=== PATIENT | female | born 1985 | race Caucasian/White ===

== ENCOUNTER 2024-08-05 14:20 | Inpatient (IN) | payer OTHER, SELFPAY ==
[2024-08-05 10:31] VITALS: BP 101/65
--- NOTE | 2024-08-05 11:12 | ED.GENMED ---
History of Present Illness
General
Chief Complaint: Skin Problem
Source: patient
Exam Limitations: none
Time Seen by Provider: 08/05/24 10:47
History of Present Illness
History of Present Illness:
See MDM
Past History
Past History
ED Past Medical History: Cancer (Breast 2019. Metastatic disease 2022)
ED Past Surgical History: , Gynecological and Other (Mastectomy with reconstruction)
Social History
Tobacco: Non-smoker
Alcohol: None
Drug: None
Personal:
Living: with family
Employment: Employed
Phy Exam
Physical Exam
Physical Exam:
See MDM
Course
Orders/Labs/Results
Orders:
Orders
08/05/24 11:11
HYDROmorphone [Dilaudid] 1 mg IV NOW STA
Ketorolac [Toradol] 30 mg IV NOW STA
Piperacillin/Tazo 3.375 Gram [Zosyn] 3.375 gram in 50 ml IV NOW
08/05/24 11:33
Complete Blood Count/With Diff Urgent
Comprehensive Metabolic Panel Urgent
Blood Culture Q30M
DANIS Source: Blood/Venous
Specimen Description:
Blood Culture Q30M
DANIS Source: Blood/Venous
Specimen Description:
08/05/24 12:13
Vancomycin [Vancocin] 1,750 mg 0.9% Sodium Chloride 500 ml [Nss] 500 ml IV NOW
08/05/24 12:37
HYDROmorphone [Dilaudid] 1 mg IV NOW STA
Abnormal Lab Results
08/05/24
11:33
WBC 3.9 L 10^3/uL
(4.8-10.8)
RBC 3.29 L 10^6/uL
(4.20-5.40)
Hgb 11.3 L g/dL
(12.0-16.0)
Hct 32.5 L %
(37.0-47.0)
MCH 34.3 H pg
(27.0-31.0)
Absolute Lymphs (auto) 0.6 L 10^3/uL
(1.2-3.4)
Lymphocytes % 14.8 L %
(20.5-51.1)
08/05/24 11:33
08/05/24 11:33
Vital Signs
Initial and Last Documented VS:
Initial Vital Signs
Temp Pulse Resp BP Pulse Ox
98.3 F 84 16 101/65 100
08/05/24 10:31 08/05/24 10:31 08/05/24 10:31 08/05/24 10:31 08/05/24 10:31
Last Documented Vital Signs
Temp Pulse Resp BP Pulse Ox
98.3 F 78 18 105/68 99
08/05/24 10:31 08/05/24 11:54 08/05/24 11:54 08/05/24 11:54 08/05/24 11:54
MDM/Problems Addressed
Differential Diagnosis Includes:
HPI and MDM Narrative:
39-year-old female presenting for evaluation of abscess to her right elbow with skin changes. Patient is immunocompromise stage IV breast cancer. She is currently on targeted cell therapy, per her . Patient and states this makes
her immunocompromised. She recently admitted for 'lung infection'. She is currently on Bactrim. They noted the swelling of her right elbow and states that outpatient x-ray was negative. She states that her doctor obtained a wound culture as well.
On exam, she does have small wound to her right elbow with surrounding cellulitic changes. Given she is already on Bactrim and immunocompromised and getting worse, will admit for IV antibiotics. Will start vancomycin and Zosyn
Physical exam
General: Well appearing and non-toxic
HEENT: protecting airway
Neck: appears supple
CV: No evidence of cyanosis
Resp: No accessory muscle use
Abd: Non-distended
Extremities: No deformities
Neuro: alert
Psych: Normal affect
Skin: Ruptured abscess to right elbow with surrounding cellulitis. Mild drainage noted. Range of motion of elbow seems to be intact
Problems Addressed including Acute and Chronic Conditions affecting care:
1. Right elbow infection
Acuity: acute
Prognosis: stable
Details: Given that she is already on outpatient antibiotics and immunocompromise, will start IV antibiotics and admit
Differential Diagnosis (but not limited to): Septic bursitis, cellulitis, abscess
Testing considered: Repeat x-ray
Drug therapy (if applicable): OTC meds, please see d/c instruction regarding Rx drugs
Amount and/or Complexity of Data Reviewed
Clinical info obtained from: Patient
External data reviewed: N/A
Labs I independently reviewed (but not limited to): White blood cell count 3.9
Radiology: N/A
Pulse Ox: not hypoxic
EKG independently reviewed: N/A
Online Journalist: N/A
Critical Care: N/A
Risk of Complication:
Social Determinants of health: Good social support
Discussed with other providers: Hospitalist
Escalation of Care includes Admit/Obs: given the be compromised and having cellulitis despite being on antibiotics ready, will admit
Occasional wrong word or 'sound a like' substitutions may have occurred due to the inherent limitations of voice recognition software. Read the chart carefully and recognize, using context, where substitutions have occurred.
*Critical Care Note
Total Time (30-74mins, 75-104mins- exclusive of procedures): Not Applicable
ED Attending Note
-
Portions of this chart may have been created with voice recognition software.� Occasional wrong word or��sound alike� substitutions may have occurred due to the inherent limitations of voice recognition software.
Discharge Plan
Departure
Patient Disposition: Admit
Date of Disposition: 08/05/24
Time of Disposition: 12:52
Admit to: Med/Surg
Presentation/result/management discussed w/ accepting MD/DO: Hospitalist
Discharge Problem:
Cellulitis
Prescriptions:
No Action
duloxetine 30 mg capsule,delayed release(DR/EC)
60 mg PO DAILY
anastrozole 1 mg Tablet
1 mg PO QPM
sennosides [senna] 8.6 mg Tablet
8.6 mg PO .SIX TIMES A DAY
meloxicam [Mobic] 15 mg Tablet
15 mg PO NOON
cyanocobalamin (vitamin B-12) 1,000 mcg Tablet
1,000 mcg PO QPM
calcium carbonate [Calcium 500] 500 mg calcium (1,250 mg) Tablet
500 mg PO QPM
ferrous sulfate 325 mg (65 mg iron) Tablet
325 mg PO NOON
cholecalciferol (vitamin D3) [Vitamin D3] 25 mcg (1,000 unit) Capsule
25 mcg PO QPM
pregabalin [Lyrica] 75 mg Capsule
75 mg PO TID
Kisqali 200 mg/day (200 mg x 1) Tablet
0 mg PO PER PKG DIR
Rx Instructions:
patient to take for 3 weeks on and then 1 week off
cyclobenzaprine [Flexeril] 10 mg Tablet
10 mg PO NOON
sulfamethoxazole-trimethoprim [Bactrim DS] 800-160 mg Tablet
1 tab PO BID
hydromorphone 4 mg Tablet
4 mg PO Q6H
Interventions
Interventions:
*General Assessment Last Done: 08/05/24 11:07
ED- Fall Risk Assessment Last Done: 08/05/24 11:07
ED-Skin Assessment Last Done: 08/05/24 11:07
Discharge Date and Time
Print Language: JAPANESE
[2024-08-05 11:18] VITALS: BMI 22.6
[2024-08-05] MEDS: DILAUDID 1 MG IV ×3 (11:34→19:26)
[2024-08-05] MEDS: TORADOL 30 MG IV (11:34)
[2024-08-05 11:54] VITALS: BP 105/68
[2024-08-05 11:57] LABS: % Basophils 0.8 % (0-2); % Immature Granulocytes 0.3 % (0-0.5); % Lymphocytes 14.8 % (20.5-51.1); % Monocytes 8.1 % (1.7-9.3); Absolute Eosinophils 0.1 10^3/uL (0-0.7); Absolute Lymphocytes 0.6 10^3/uL (1.2-3.4); Absolute Monocytes 0.3 10^3/uL (0.1-0.6); Absolute Neutrophils 2.9 10^3/uL (1.4-6.5); Hematocrit 32.5 % (37.0-47.0); Hemoglobin 11.3 g/dL (12.0-16.0); Mean Corp Hgb Conc. 34.8 g/dL (33.0-37.0); Mean Corpuscular Hgb 34.3 pg (27.0-31.0); Mean Corpuscular Volume 98.8 fL (81.0-99.0); Mean Platelet Volume 9.3 fL (7.4-10.4); Nucleated Red Blood Cells % 0 %; Platelet Count 204 10^3/uL (130-400); Red Blood Cell Count 3.29 10^6/uL (4.20-5.40); Red Cell Dist. Width 11.9 % (11.5-14.5); White Blood Cell Count 3.9 10^3/uL (4.8-10.8)
[2024-08-05 12:09] LABS: ALT (SGPT) 12 U/L (0-35); AST (SGOT) 23 U/L (14-36); Albumin 4.1 g/dl (3.5-5.0); Alkaline Phosphatase 100 U/L (38-126); Blood Urea Nitrogen 13 mg/dl (7-17); Calcium 8.8 mg/dl (8.4-10.2); Carbon Dioxide 29 mmol/L (22-30); Chloride 99 mmol/L (98-107); Estimated Creatinine Clearance 104 ml/min; Glucose 88 mg/dl (70-99); Potassium 4.8 mmol/L (3.5-5.1); Sodium 138 mmol/L (135-145); Total Bilirubin 0.5 mg/dl (0.2-1.3); Total Protein 6.3 g/dl (6.3-8.2); eGFR > 60.00
[2024-08-05] MEDS: ZOSYN 50 IV ×3 (12:43→23:47)
--- NOTE | 2024-08-05 12:45 | HPS.HSE ---
Family Physician
-
Family Physician:
Chief Complaint
-
right elbow abscess
History of Present Illness
39 year old with hxt of metastatic stage 4 breast cancer presented to us with right elbow swelling and pain since last Monday. Throughout the week it progressively got worse. Patient was started on Bactrim on . The abscess ruptured on
Monday. Still with redness, swelling and painful. A week ago patient was in Zithromax for pneumonia. Patient denied any headache, dizziness, syncopal episode. Patient denied any fever, chills, chest pain, short of breath. Patient denied any
abdominal pain. Patient stated decreased appetite, nausea, vomiting. Patient denied any dysuria materia.
Patient received Vanco and Zosyn in ER. Admitting for further management
Medical History
Past Medical History
Past Medical History: Reports Other
Additional Past Medical History:
Breast cancer
Past Surgical History: Reports None and Other
Additional Past Surgical History:
Hysterectomy, bilateral mastectomy, hip replacement
Social History
Tobacco: Former Smoker
Alcohol: Occasional
Drug: None
Personal:
Living: With Family
Family History
Family History: Not pertinent
Allergies / Home Medications
Allergies reflects when Allergies were last updated in [facility].
Home Medications with original date entered in [facility]
Allergy/Medication List:
Allergies
Allergy/AdvReac Type Severity Reaction Status Date / Time
ondansetron [From Zofran] Allergy Nausea / Verified 08/05/24 10:31
Vomiting
oxycodone [From Percocet] Allergy Nausea / Verified 08/05/24 10:31
Vomiting
Home Medications
anastrozole 1 mg tablet 1 mg PO QPM breast cancer 06/26/23
calcium carbonate 500 mg PO QPM Supplement 06/26/23
cholecalciferol (vitamin D3) 25 mcg (1,000 unit) capsule (Vitamin D3) 25 mcg PO QPM Supplement 06/26/23
cyanocobalamin (vitamin B-12) 1,000 mcg tablet 1,000 mcg PO QPM Supplement 06/26/23
duloxetine 30 mg capsule,delayed release 60 mg PO DAILY depression/anxiety 06/26/23
ferrous sulfate 325 mg (65 mg iron) tablet 325 mg PO NOON Supplement 06/26/23
meloxicam 15 mg tablet 15 mg PO NOON pain 06/26/23
pregabalin 75 mg capsule (Lyrica) 75 mg PO TID pain 06/26/23
ribociclib 200 mg/day (200 mg x 1) tablet (Kisqali) 0 mg PO PER PKG DIR breast cancer 06/26/23
sennosides 8.6 mg tablet (senna) 8.6 mg PO .SIX TIMES A DAY Constipation 06/26/23
cyclobenzaprine 10 mg tablet 10 mg PO NOON muscle spasm/pain 08/05/24
hydromorphone 4 mg tablet 4 mg PO Q6H pain 08/05/24
sulfamethoxazole 800 mg-trimethoprim 160 mg tablet (Bactrim DS) 1 tab PO BID infection 08/05/24
Review of Systems
-
Constitutional: Reports No Symptoms
EENT: Reports No Symptoms
Respiratory: Reports No Symptoms
Cardiac: Reports No Symptoms
Abdomen/GI: Reports No Symptoms
: Reports No Symptoms
Musculoskeletal: Reports No Symptoms
Skin: Reports Other (Right elbow swelling, redness and abscess)
Neurological: Reports No Symptoms
Endocrine: Reports No Symptoms
Hematologic/Lymphatic: Reports No Symptoms
Psych: Reports No Symptoms
Physical Exam
Vital Signs
Vital Signs
Temp Pulse Resp BP Pulse Ox
98.3 F 78 18 105/68 99
08/05/24 10:31 08/05/24 11:54 08/05/24 11:54 08/05/24 11:54 08/05/24 11:54
Physical Exam
General: Well Developed, Well Nourished and No Apparent Distress
HEENT: NormoCephalic, Moist mucous membranes and Atraumatic
Respiratory: Clear
Cardiac: S1/S2 and Regular Rhythm; No Murmur or Rub
GI: Soft, Non Tender, Non Distended and Normal Bowel Sounds; No Organomegaly
Rectal: Deferred by Provider
Musculoskeletal: No Clubbing, No Cyanosis and No Edema
Skin: Rash and Other (Right elbow wrapped in joanna)
Neuro: AO x 3 and Nonfocal/grossly intact
Psych: Calm
Laboratory Results
-
08/05/24 11:33
08/05/24 11:33
Laboratory Results
Total Bilirubin 0.5 mg/dl (0.2-1.3) 08/05/24 11:33
AST 23 U/L (14-36) 08/05/24 11:33
ALT 12 U/L (0-35) 08/05/24 11:33
Alkaline Phosphatase 100 U/L (38-126) 08/05/24 11:33
Data Reviewed
-
Lab Data: Labs Reviewed by me
Impression/Plan
-
# Abscess/cellulitis on right elbow
-Vanco and Zosyn continued
-Tylenol as needed for fever or pain
-WBCs 3.9
-Blood culture sent from ER
-obtain MRI
-outpatient X ray with soft tissue swelling possible occult fracture.
-wound care
# Stage IV breast metastatic cancer
-On targeted therapy
- follows oncologist at [facility]
-Dilaudid as needed for pain
-Will continue Lyrica
# Depression/anxiety
-Duloxetine continued
# Muscle spasm
-Flexeril continued
# Iron deficiency anemia
-Ferrous sulfate continued
# DVT prophylaxis
-Lovenox subcu
# CODE STATUS
-Full code
[2024-08-05] MEDS: VANCOCIN 535 MG IV (13:09)
--- NOTE | 2024-08-05 13:11 | W.PN.UPDATE ---
Update Note
Progress Note Update
This is an addendum to the H&P written by Evi Washington on 08/05/2024. Patient seen and examined independently with TAPE LIBRARIAN.
39-year-old female past medical history of stage IV breast cancer 2019 status post mastectomy with reconstruction on hormonal/immunotherapy follows at [facility] with metastases to left hip status post left hip replacement presenting with right elbow open
wound with purulent drainage surrounding cellulitis over the past week. No injuries.
Outpatient x-ray of the elbow shows soft tissue swelling, cannot rule out occult fracture.
She was treated for pneumonia with Z-Danyel 1 week ago. She has recovered from this.
Check blood cultures. Vancomycin/Zosyn. Wound care consulted. Check MRI of right elbow to evaluate for pathologic fracture/osteomyelitis. Continue to hold Kisqali.
[2024-08-05 16:15] VITALS: BP 103/67; BMI 20.9
--- NOTE | 2024-08-05 17:08 | PHA.VAN.IN ---
Assessment
- Assessment
Renal Function: Appears similar to baseline
Concomitant Antimicrobials: ZOSYN
- Previous Dosing Experience
Previous Regimen: NONE
AUC Dosing Plan
- Dosing Variables
Dosing Weight (kg): 65.3
Dosing CrCl (ml/min): 100
Vd coefficient (L/kg): 0.7
- Empiric Dosing
Initial / Loading Dose: 1750MG
Maintenance Regimen: 1GM IV Q12H
Estimated AUC (mcg*h/mL): 523
Estimated Peak (mcg*h/mL): 33.7
Estimated Trough (mcg/ml): 12.9
Estimated Half Life (H): 7.9
Pharmacokinetics Vancomycin I
- -
Patient Age: 39
Patient Sex: Female
Vancomycin Day #: 1
Indication: Skin And Soft Tissue ([R] ELBOW CELLULITIS)
Requesting Provider: LUIGI
Height / Weight:
Height 5 ft 7 in
Actual Weight 65.3 kg
Pertinent Past Medical History: STAGE 4 METASTATIC BREAST CA; OUTPT TX WITH BACTRIM
- Vital Signs / Lab Results
Temp Pulse Resp BP Pulse Ox
98.3 F 78 18 105/68 99
08/05/24 10:31 08/05/24 11:54 08/05/24 11:54 08/05/24 11:54 08/05/24 11:54
Lab Results - Hematology
08/05/24
11:33
WBC 3.9 L
Lab Results - Chemistry
08/05/24
11:33
BUN 13
Creatinine 0.7
Estimated Creat Clear 104
Albumin 4.1
[2024-08-05] MEDS: ARIMIDEX 1 MG PO (18:10)
[2024-08-05] MEDS: LOVENOX 40 MG SC (18:11)
[2024-08-05] MEDS: DILAUDID 4 MG PO ×2 (18:18→23:47)
[2024-08-05] MEDS: LYRICA 75 MG PO (20:27)
[2024-08-05 23:33] VITALS: BP 110/64
[2024-08-06] MEDS: DILAUDID 1 MG IV ×4 (01:53→19:41)
[2024-08-06] MEDS: ZOSYN 50 IV ×2 (05:01→12:34)
[2024-08-06] MEDS: DILAUDID 4 MG PO ×4 (05:56→23:52)
[2024-08-06] MEDS: VANCOCIN 200 IV ×2 (05:56→17:37)
[2024-08-06] MEDS: CYMBALTA DELAYED RELEASE 60 MG PO (05:56)
[2024-08-06 06:00] VITALS: BMI 20.9
[2024-08-06] MEDS: LYRICA 75 MG PO ×3 (06:05→19:41)
[2024-08-06 06:37] LABS: Hematocrit 33.5 % (37.0-47.0); Hemoglobin 10.7 g/dL (12.0-16.0); Mean Corp Hgb Conc. 31.9 g/dL (33.0-37.0); Mean Corpuscular Hgb 32.4 pg (27.0-31.0); Mean Corpuscular Volume 101.5 fL (81.0-99.0); Mean Platelet Volume 9.5 fL (7.4-10.4); Platelet Count 191 10^3/uL (130-400); Red Cell Dist. Width 11.9 % (11.5-14.5); White Blood Cell Count 2.7 10^3/uL (4.8-10.8)
[2024-08-06 07:18] LABS: Blood Urea Nitrogen 10 mg/dl (7-17); Calcium 8.2 mg/dl (8.4-10.2); Carbon Dioxide 22 mmol/L (22-30); Chloride 106 mmol/L (98-107); Estimated Creatinine Clearance 119 ml/min; Glucose 84 mg/dl (70-99); Potassium 4.9 mmol/L (3.5-5.1); Sodium 139 mmol/L (135-145); eGFR > 60.00
[2024-08-06 07:30] VITALS: BP 102/63
--- NOTE | 2024-08-06 07:58 | PHA.VAN.FU ---
Vancomycin Assessment / Plan
- Assessment
Renal Function: Stable
In the past 24 hrs, patient has been: Afebrile
Concomitant Antimicrobials: piperacillin/tazobactam
- Dosing Plan
Continue: Vanc 1000mg Q12H
- Monitoring Plan
No level(s) ordered at this time: consider levels in next few days
- Follow Up
Pharmacy will continue to follow.
Vancomycin Follow UP
- -
Patient Age: 39
Patient Sex: Female
Vancomycin Day #: 2
Indication: Skin And Soft Tissue
Requesting Provider: Carisa Washington
Pertinent Antimicrobial Allergies:
no pertinent antibiotic allergies
Height / Weight:
Height 5 ft 7 in
Actual Weight 60.328 kg
Pertinent Past Medical History: Stage IV breast metastatic cancer
- Vital Signs / Lab Results
Temp Pulse Resp BP Pulse Ox
97.9 F 74 20 110/64 98
08/05/24 23:33 08/05/24 23:33 08/05/24 23:33 08/05/24 23:33 08/05/24 23:33
Lab Results - Hematology
08/05/24 08/06/24
:33 06:20
WBC 3.9 L 2.7 L
Lab Results - Chemistry
08/05/24 08/06/24
: 06:20
BUN 13 10
Creatinine 0.7 0.6
Estimated Creat Clear 104 119
Albumin 4.1
--- NOTE | 2024-08-06 08:25 | W.PN.HOSP.TC ---
Today's Communication/Plan
-
Continue Vancomycin
Appreciate ID, ortho, oncology
Follow cultures
Assessment / Plan
Assessment / Plan
Physical Exam
General: Well Developed, Well Nourished and No Apparent Distress
HEENT: Normocephalic, Moist mucous membranes and Atraumatic
Respiratory: Clear to Auscultation Bilaterally
Cardiac: S1/S2 and Regular Rhythm
GI: Soft, Non Tender, Non Distended and Normal Bowel Sounds
Musculoskeletal: No Cyanosis and No Edema
Skin: Right olecranon with induration, wound/ulceration with patel-brown slough, very tender, no drainage, some fluctuance, and surrounding erythema present
Neuro: AAO x 3 and Nonfocal/grossly intact
Psych: Calm
Assessment/Plan
39-year-old female past medical history of stage IV breast cancer 2019 status post mastectomy with reconstruction on hormonal/immunotherapy follows at [facility] with metastases to left hip status post left hip replacement presenting with right elbow open
wound with purulent drainage surrounding cellulitis over the past week. No injuries.
Outpatient x-ray of the elbow shows soft tissue swelling, cannot rule out occult fracture.
She was treated for pneumonia with Z-Danyel 1 week ago. She has recovered from this.
# Presentation with right elbow swelling, redness, skin ulceration, pus (lump recently burst on 08/04/24 with pus and blood)
# Abscess/cellulitis on right elbow
-Patient was taking outpatient Bactrim, and once her right elbow lump burst with pus and blood coming out, patient's outpatient provider asked patient to go to the ER
-Vancomycin continued. Zosyn stopped as per Infectious Disease physician -- appreciate Infectious Disease assistance
-Blood culture sent from ER
-MRI showed a 1.7 x 2.4 cm peripherally enhancing collection in the superficial soft tissue without joint involvement
-Wound care consultation
-Orthopedics consulted, appreciate their assistance: on 08/06/24, right elbow was meticulously cleaned then aspirated fluid yielding scant serous fluid; aerobic and anaerobic cultures were sent.
# Stage IV breast metastatic cancer
-On targeted therapy
- follows oncologist at [facility]
-Dilaudid as needed for pain
-Will continue Lyrica
-Per patient and her , patient's Damari has been on hold for the past ~2 weeks given her recent pneumonia
-Consulted oncology, appreciate evaluation and recommendations
# Depression/anxiety
-Duloxetine continued
# Muscle spasm
-Flexeril continued
# Iron deficiency anemia
-Ferrous sulfate continued
# DVT prophylaxis
-Lovenox subcu
# CODE STATUS
-Full code
Total time spent today on reviewing patient's chart, seeing and examining the patient, speaking with patient and her , reviewing orders, placing specialist consultations, and documentation, was 75 minutes.
Anticipated Discharge: > 48 hours
Subjective/Interval History
-
Date of Service: August 06, 2024
Patient was seen and examined. She reported improvement of her right elbow symptoms.
Objective Data
-
Labs:
Laboratory Results
08/06/24
06:20
WBC 2.7 L
Hgb 10.7 L
Hct 33.5 L
Plt Count 191
Sodium 139
Potassium 4.9
Chloride 106
Carbon Dioxide 22
BUN 10
Creatinine 0.6
Glucose 84
Calcium 8.2 L
Vital Signs:
Vital Signs
Temp Pulse Resp BP Pulse Ox
98.0 F 72 14 102/63 96
08/06/24 07:30 08/06/24 07:30 08/06/24 07:30 08/06/24 07:30 08/06/24 07:30
I&O
08/05/24 08/06/24 08/07/24
06:59 06:59 06:59
Intake Total 830 / 830
Balance 830 / 830
[2024-08-06] MEDS: FEOSOL 325 MG PO (12:34)
[2024-08-06] MEDS: FLEXERIL 10 MG PO (12:34)
[2024-08-06] MEDS: MOBIC 15 MG PO (12:34)
[2024-08-06] MEDS: SENOKOT 17.2 MG PO ×2 (12:41→19:41)
--- NOTE | 2024-08-06 13:00 | CON.ID ---
Consultation
-
Date/Time Consultation Requested: 08/06/2024 1154
Date/Time Consultation Performed: 08/06/2024 1300
Requesting Provider: Dr. Jacques Darnell
Performing Provider: Dr. Ana Rosa Carballo
Reason for Consultation: Bursitis
Chief Complaint / Past History
Chief Complaint
Right elbow wound drainage
History of Present Illness
39-year-old female with metastatic breast cancer currently on immunotherapy who noted right elbow redness and soreness last Monday, July 30. Right elbow became very painful with worsening swelling, redness, and a lump. Her oncologist ordered
elbow x-ray which shows soft tissue swelling. She was prescribed Bactrim on August 01. Pain persisted. On Monday, the lump opened draining copious pus and blood. She was instructed to go to the ER and therefore she came to [facility]
yesterday. She was started on vancomycin and Zosyn. MRI of the elbow this morning shows a 1.7 x 2.4 cm peripherally enhancing collection in the superficial soft tissue without joint involvement. Patient reports the surrounding erythema has
improved. However she continues to have significant elbow pain over the wound. No fevers or chills at home. She denies any trauma or injury to the elbow.
Past History
Additional Past Medical History:
Stage IV breast cancer status post bilateral mastectomy, chemotherapy, currently on immunotherapy and hormone therapy
Right upper extremity lymphedema
Hysterectomy
Left hip pathological fracture status post replacement
Allergy History:
ondansetron [From Zofran] Allergy (Verified 08/05/24 10:31)
Nausea / Vomiting
oxycodone [From Percocet] Allergy (Verified 08/05/24 10:31)
Nausea / Vomiting
Medications Reviewed: Yes
Current Antibiotics:
Vancomycin
Zosyn
Social History
Tobacco: Former Smoker
Alcohol: None
Drug: None
Personal:
Living: With Family
Family History
Family History: Not Pertinent
Review of Systems
Review of Systems
General: Change in Appetite; Negative Fever or Chills
HEENT: Negative Headache or Pharyngitis
Cardiovascular: Negative Chest Pain or Edema
Respiratory: Negative Dyspnea or Cough
Gasteroenterology: Negative Nausea, Vomiting or Diarrhea
Endocrine: Weakness
Musculoskeletal: Joint Pain and Joint Swelling
Neurological: Negative Dizziness
All systems: All other systems were reviewed and were negative
Vital Signs
Temp Pulse Resp BP Pulse Ox
98.0 F 72 14 102/63 96
08/06/24 07:30 08/06/24 07:30 08/06/24 07:30 08/06/24 07:30 08/06/24 07:30
Physical Exam
Physical Exam
Constitutional: No Acute Distress
Eyes: No Conjunctival Hemorrhage and Sclera Anicteric
Cardiovascular: Regular Rate and S1/S2
Pulmonary: Clear
Gastrointestinal: Soft
Genito-Urinary: Negative CVA Tenderness
Extremities: Negative Edema
Wound: Other (right olecranon at tip with induration, wound with patel-brown slough, very tender, no drainage at this time, some fluctuance, + surrounding erythema)
Neurological: AO x 3
Lab / Diagnostic Study Results
08/06/24 06:20
08/06/24 06:20
Abs Immat Gran (auto) 0.0 10^3/uL (0-0.05) 08/05/24 11:33
Absolute Neuts (auto) 2.9 10^3/uL (1.4-6.5) 08/05/24 11:33
Absolute Lymphs (auto) 0.6 10^3/uL (1.2-3.4) L 08/05/24 11:33
Absolute Monos (auto) 0.3 10^3/uL (0.1-0.6) 08/05/24 11:33
Absolute Basos (auto) 0.0 10^3/uL (0-0.2) 08/05/24 11:33
Immature Gran % 0.3 % (0-0.5) 08/05/24 11:33
Neutrophils % 74.0 % (42.2-75.2) 08/05/24 11:33
Lymphocytes % 14.8 % (20.5-51.1) L 08/05/24 11:33
Monocytes % 8.1 % (1.7-9.3) 08/05/24 11:33
Eosinophils % 2.0 % (0-6) 08/05/24 11:33
Basophils % 0.8 % (0-2) 08/05/24 11:33
Microbiology Results
Micro:
08/05/24 11:33 Blood Culture - Preliminary
Blood/Venous No Growth in 24 hours- Final report to follow
08/05/24 11:33 Blood Culture - Preliminary
Blood/Venous No Growth in 24 hours- Final report to follow
08/05/24 19:11 MRSA Screen - Pending
Nose
08/06/24 MRI RUE: There is extensive T2 hyperintense signal and enhancement along the medial posterior soft tissues of the elbow extending along the proximal aspect of the forearm. There is a 1.7 x 0.7 x 2.4 cm peripherally enhancing collection,
likely abscess in the superficial soft tissues posterior to the olecranon. There is no discrete evidence of underlying osteomyelitis or intra-articular extension.
Assessment / Plan
# Right olecranon soft tissue abscess
- Abscess opened and drained 2 days ago.
-Currently not draining, unable swab for culture.
-MRI shows residual 2.4 cm abscess
-Apply warm compress to promote spontaneous drainage of remaining fluid
-Consult Ortho to consider bedside drainage, pls send cx.
- Elevate RUE
- DC Zosyn.
-Continue Vancomycin for now.
# Immunocompromised host stage IV brease CA on immunotherapy
Care Review
Plan reviewed with: Physician (Dr. Darnell.)
--- NOTE | 2024-08-06 14:43 | CM ---
CM following re: discharge planning.
Reviewed pt's chart, met with pt.
Pt is a 39 year old female, admitted with primary dx of Abscess/cellulitis on right elbow with h/o metastatic stage 4 breast cancer MRI today.
Pt reports she lives with and 2 children in a 2SH, 1 step to enter. 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
Pharmacy: [facility]
D/C plan: home with anticipated no needs.
CM will follow with discharge plan updates as hospitalization progresses
[2024-08-06 15:20] VITALS: BP 106/73
--- NOTE | 2024-08-06 15:39 | WOUNDNOTE ---
[facility] RN note: Patient admitted with Cellulitis of R arm/elbow.
See H&P for complete history.
PMH: Stage IV breast cancer status post bilateral mastectomy, chemotherapy, currently on immunotherapy and hormone therapy
Right upper extremity lymphedema
Wound Location and type/assessment: Patient admitted with: R elbow ulcer painful to touch and cellulitis/edema of arm. Patient does not recall banging elbow on anything it just gradually appeared. Was draining purulent drainage upon admission but
now dry and covered with patel slough. Redness has come down per patient but still swollen and warm to touch. MRI was negative for osteomyelitis but suspected abscess. I&D following, reviewed note.
Appetite: Fair.
Pressure redistribution devices in place: Patient is ad ammy, given air cushion on pillow to elevate R arm.
Plan: Local wound care done. Will order mupirocin topical with adaptic, gauze, joanna and spandage. Ice pack PRN for pain. Confirmed mupirocin with Dr. Carballo. Will confirm orders with hospitalist and updated nurse.
Updated care plan and will follow as needed.
Note to case management of equipment requested for discharge:
Recommend follow up at wound care center upon discharge.
--- NOTE | 2024-08-06 16:07 | W.PN.UPDATE ---
Addendum entered and electronically signed by Ronald Freeman PA-C 08/07/24 08:04:
To clarify, the fluid on her dressing and fluid aspirated from her right elbow was not serous it was purulent.
Original Note:
Update Note
Progress Note Update
Full orthopedic consult dictated:
Dx: Right elbow olecranon bursitis/cellulitis improved
Plan: Patient has been dealing with right elbow cellulitis/bursitis. This morning she underwent MRI of the right elbow which showed fluid accumulation/abscess along the posterior aspect of the elbow consistent with septic olecranon bursitis.
This evening at bedside her dressing was removed and there was copious serous drainage noted. Right elbow olecranon bursal fluid appears to have decompressed fairly significantly. She did have trace erythema which is well within the demarcated
lines which were placed at some point during this admission. Passive motion minimal pain over the posterior aspect of the elbow. Right elbow was meticulously cleaned then aspirated fluid yielding scant serous fluid. Aerobic and anaerobic cultures
were sent. I am going to order K-pad and continue to observe for now. Antibiotics per ID.
[2024-08-06] MEDS: ARIMIDEX 1 MG PO (17:37)
[2024-08-06] MEDS: LOVENOX 40 MG SC (17:41)
[2024-08-06 23:55] VITALS: BP 101/68
[2024-08-07] VITALS (11 sets, daily range): BP systolic 100–128; BP diastolic 66–80
[2024-08-07] MEDS: DILAUDID 1 MG IV ×4 (04:44→21:45)
[2024-08-07] MEDS: VANCOCIN 200 IV ×2 (06:12→18:25)
[2024-08-07] MEDS: DILAUDID 4 MG PO ×3 (06:13→17:29)
[2024-08-07] MEDS: SENOKOT 17.2 MG PO ×3 (06:13→21:43)
[2024-08-07] MEDS: LYRICA 75 MG PO ×3 (06:13→21:43)
[2024-08-07 06:29] LABS: Hemoglobin 11.5 g/dL (12.0-16.0); Mean Corp Hgb Conc. 33.8 g/dL (33.0-37.0); Mean Corpuscular Hgb 33.7 pg (27.0-31.0); Mean Corpuscular Volume 99.7 fL (81.0-99.0); Mean Platelet Volume 9.3 fL (7.4-10.4); Platelet Count 224 10^3/uL (130-400); Red Blood Cell Count 3.41 10^6/uL (4.20-5.40); Red Cell Dist. Width 11.9 % (11.5-14.5); White Blood Cell Count 3.1 10^3/uL (4.8-10.8)
--- NOTE | 2024-08-07 06:30 | CON.ONC ---
Impression
Impression
Met Breast Ca to bone
Right olecranon soft tissue abscess
Leukopenia
Plan
Plan
Leukopenia appears somewhat chronic with WBC = 2.1 in 2022 (see data above).
Etiology likely a combination of marrow dysfunction from met disease (marrow involvement), chronic leukopenia (WBC = 5.0 in 2019), and Kisqali (on hold x 2 weeks).
Currently Kiskali on hold. ANC adequate.
No role for G-CSF.
Okay to continue Arimidex which is not myelosuppressive.
Post D/C F/U with Dr. Mcclain at [place]. Our card given if she wants to coordinated management locally with us as well.
Oncology will sign off. Call if needed.
Patient History
History of Present Illness
Primary Med Onc (RANDOLPH): Eric Mcclain
CC: right elbow abscess
Heme Consult: Met Breast Ca and leukopenia
HPI: 39 year old with metastatic stage IV breast cancer to bone only presented to us with right elbow swelling and pain since last Monday. Throughout the week it progressively got worse. Patient was started on Bactrim on . The abscess
ruptured on Monday. Admitted for IV Abx; Vanco and Zosyn in ER. Seen by Ortho and ID. Noted to have leucopenia. Consulted for Leukopenia associated with MBC. Has been on Arimidex + Kisqali x 2 years (Kisqali on hold past 2 weeks). Now on
Vancomycin alone.
Past-Medical/Surgical History
PMH: Met ST IV Breast cancer w bone mets (spine and femur)
PSH: Hysterectomy, bilateral mastectomy, hip replacement
SH:
Tobacco: Former Smoker
Alcohol: Occasional
Drug: None
Personal:
Patient Medication
�Medication �Instructions �Recorded �Confirmed �Last Taken �Type
anastrozole 1 mg tablet 1 mg PO QPM breast cancer 06/26/23 08/05/24 08/04/24 History
calcium carbonate 500 mg PO QPM Supplement 06/26/23 08/05/24 08/04/24 History
cholecalciferol (vitamin D3) 25 25 mcg PO QPM Supplement 06/26/23 08/05/24 08/04/24 History
mcg (1,000 unit) capsule (Vitamin
D3)
cyanocobalamin (vitamin B-12) 1,000 mcg PO QPM Supplement 06/26/23 08/05/24 08/04/24 History
1,000 mcg tablet
ferrous sulfate 325 mg (65 mg 325 mg PO NOON Supplement 06/26/23 08/05/24 08/04/24 History
iron) tablet
meloxicam 15 mg tablet 15 mg PO NOON pain 06/26/23 08/05/24 08/04/24 History
pregabalin 75 mg capsule (Lyrica) 75 mg PO TID@0600,1200,1999 pain 06/26/23 08/05/24 08/05/24 History
ribociclib 200 mg/day (200 mg x 1) 0 mg PO PER PKG DIR breast cancer 06/26/23 08/05/24 2 Weeks Ago History
tablet (Kisqali) ~07/22/24
sennosides 8.6 mg tablet (senna) 17.2 mg PO TID@0600,1200,199906/26/23 08/06/24 08/04/24 History
Constipation
cyclobenzaprine 10 mg tablet 10 mg PO NOON muscle spasm/pain 08/05/24 08/05/24 08/04/24 History
duloxetine 60 mg capsule,delayed 60 mg PO DAILY@0600 08/05/24 08/05/24 08/04/24 06:00 History
release depression/anxiety
hydromorphone 4 mg tablet 4 mg PO Q6H pain 08/05/24 08/05/24 08/04/24 History
sulfamethoxazole 800 1 tab PO BID infection 08/05/24 08/05/24 08/05/24 History
mg-trimethoprim 160 mg tablet
(Bactrim DS)
Active Medications
Generic Name Dose Route Start Last Admin
Trade Name Freq PRN Reason Stop Dose Admin
Acetaminophen 650 mg 08/05/24 16:08
Acetaminophen 325 Mg Tablet PO 09/02/24 16:07
Q4HPRN PRN
mild pain or temp > 100.4 F
Anastrozole 1 mg 08/05/24 18:00 08/06/24 17:37
Anastrozole 1 Mg Tablet PO 09/02/24 17:59 1 mg
QPM LAURA Administration
Cyclobenzaprine HCl 10 mg 08/06/24 12:00 08/06/24 12:34
Cyclobenzaprine 10 Mg Tablet PO 09/03/24 11:59 10 mg
NOON LAURA Administration
Duloxetine HCl 60 mg 08/07/24 12:00
Duloxetine Delayed Release 60 Mg Capsule PO 09/04/24 11:59
DAILY@1200 LAURA
Enoxaparin Sodium 40 mg 08/05/24 18:00 08/06/24 17:41
Enoxaparin Sodium 40 Mg/0.4 Ml Syringe SC 09/02/24 17:59 40 mg
QPM LAURA Administration
Ferrous Sulfate 325 mg 08/06/24 12:00 08/06/24 12:34
Ferrous Sulfate 325 Mg Tablet PO 09/03/24 11:59 325 mg
NOON LAURA Administration
Hydromorphone HCl 1 mg 08/05/24 18:28 08/07/24 04:44
Hydromorphone 1 Mg/Ml Carpuject IV 08/19/24 18:27 1 mg
Q4HPRN PRN Administration
moderate pain
Hydromorphone HCl 4 mg 08/06/24 00:00 08/07/24 06:13
Hydromorphone 4 Mg Tablet PO 08/20/24 00:00 4 mg
Q6 LAURA Administration
Vancomycin HCl 1 gram in 200 mls @ 200 mls/hr 08/06/24 06:00 08/07/24 06:12
Vancocin IV 200 mls
Q12H LAURA Administration
Protocol
Meloxicam 15 mg 08/06/24 12:00 08/06/24 12:34
Meloxicam (Mobic) 15 Mg Tablet PO 09/03/24 11:59 15 mg
NOON LAURA Administration
Mupirocin 0 applic 08/07/24 08:00
Mupirocin 2% (Ointment) 22 Gram Tube TOPICAL
DAILY LAURA
Pregabalin 75 mg 08/05/24 20:00 08/07/24 06:13
Pregabalin 75 Mg Capsule PO 09/02/24 19:59 75 mg
TID@0600,1200,1999 [facility] Administration
Sennosides 17.2 mg 08/06/24 12:00 08/07/24 06:13
Sennosides (Senokot) 8.6 Mg Tablet PO 09/03/24 11:59 17.2 mg
TID@0600,1200,1999 LAURA Administration
Sodium Chloride 0 flush 08/05/24 17:00
Sodium Chloride 0.9% (Flush) Syringe IV 09/02/24 16:59
PER PROTOCOL LAURA
Physical Exam
-
General: Well Developed, Well Nourished, No Apparent Distress and Comfortable
HEENT: Negative Jaundice
Cardiology: S1 and S2
Pulmonary: Clear
GI: Soft
Extremities: No C/C/E
Neurology: Non Focal
Labs
Lab Results
WBC 3.1 10^3/uL (4.8-10.8) L 08/07/24 06:02
RBC 3.41 10^6/uL (4.20-5.40) L 08/07/24 06:02
Hgb 11.5 g/dL (12.0-16.0) L 08/07/24 06:02
Hct 34.0 % (37.0-47.0) L 08/07/24 06:02
MCV 99.7 fL (81.0-99.0) H 08/07/24 06:02
MCH 33.7 pg (27.0-31.0) H 08/07/24 06:02
MCHC 33.8 g/dL (33.0-37.0) 08/07/24 06:02
RDW 11.9 % (11.5-14.5) 08/07/24 06:02
Plt Count 224 10^3/uL (130-400) 08/07/24 06:02
MPV 9.3 fL (7.4-10.4) 08/07/24 06:02
Abs Immat Gran (auto) 0.0 10^3/uL (0-0.05) 08/05/24 11:33
Absolute Neuts (auto) 2.9 10^3/uL (1.4-6.5) 08/05/24 11:33
Absolute Lymphs (auto) 0.6 10^3/uL (1.2-3.4) L 08/05/24 11:33
Absolute Monos (auto) 0.3 10^3/uL (0.1-0.6) 08/05/24 11:33
Absolute Eos (auto) 0.1 10^3/uL (0-0.7) 08/05/24 11:33
Absolute Basos (auto) 0.0 10^3/uL (0-0.2) 08/05/24 11:33
Immature Gran % 0.3 % (0-0.5) 08/05/24 11:33
Neutrophils % 74.0 % (42.2-75.2) 08/05/24 11:33
Lymphocytes % 14.8 % (20.5-51.1) L 08/05/24 11:33
Monocytes % 8.1 % (1.7-9.3) 08/05/24 11:33
Eosinophils % 2.0 % (0-6) 08/05/24 11:33
Basophils % 0.8 % (0-2) 08/05/24 11:33
Creatinine 0.6 mg/dL (0.6-1.0) 08/06/24 06:20
Laboratory Tests
06/26/23 08/05/24
14:15 11:33
WBC 2.1 L* 3.9 L
Absolute Neuts (auto) 0.9 L* 2.9
Vital Signs
Vital Signs
Temp Pulse Resp BP Pulse Ox
97.9 F 77 18 101/68 97
08/06/24 23:55 08/06/24 23:55 08/06/24 23:55 08/06/24 23:55 08/06/24 23:55
[2024-08-07 06:54] LABS: Blood Urea Nitrogen 9 mg/dl (7-17); Calcium 8.3 mg/dl (8.4-10.2); Carbon Dioxide 26 mmol/L (22-30); Chloride 106 mmol/L (98-107); Estimated Creatinine Clearance 119 ml/min; Glucose 84 mg/dl (70-99); Potassium 4.5 mmol/L (3.5-5.1); Sodium 140 mmol/L (135-145); eGFR > 60.00
--- NOTE | 2024-08-07 07:39 | W.PN.UPDATE ---
Addendum entered and electronically signed by Saleem Hunter PA-C 08/07/24 09:37:
Patient seen and evaluated by Dr. Gee Randle. Will plan for OR today for wash out. Patient made NPO.
Original Note:
Update Note
Progress Note Update
Patient seen and evaluated by orthopedic surgery this morning. Currently admitted for right olecranon bursitis/upper extremity cellulitis. She underwent MRI of the right elbow, which showed fluid accumulation/abscess along the posterior aspect of
the elbow. No discrete evidence of underlying osteomyelitis or intra-articular extension. She endorses slight improvement from yesterday. Elbow exam is with essentially pain-free ROM. Dressing change was performed this AM, revealing serous
drainage. Cultures obtained yesterday pending. We will also have one of our upper extremity specialist see the patient today. Continue with IV antibiotics per ID/hospital team. Orthopedic surgery will continue to follow along.
Patient seen in tandem with Dr. Trent.
[2024-08-07] MEDS: BACTROBAN 2% OINTMENT 1 APPLIC TOPICAL (08:10)
--- NOTE | 2024-08-07 08:40 | PHA.VAN.FU ---
Vancomycin Assessment / Plan
- Assessment
Renal Function: Stable
In the past 24 hrs, patient has been: Afebrile
- Dosing Plan
Continue: Vanc 1000mg Q12H
- Monitoring Plan
No level(s) ordered at this time: OR scheduled today around level timing
Monitoring Comments: will consider levels tomorrow or in next few days
- Follow Up
Pharmacy will continue to follow.
Vancomycin Follow UP
- -
Patient Age: 39
Patient Sex: Female
Vancomycin Day #: 3
Indication: Skin And Soft Tissue
Requesting Provider: Carisa Washington / Dr. Carballo
Pertinent Antimicrobial Allergies:
no pertinent antibiotic allergies
Height / Weight:
Height 5 ft 7 in
Actual Weight 60.328 kg
Pertinent Past Medical History: Stage IV breast metastatic cancer
- Vital Signs / Lab Results
Temp Pulse Resp BP Pulse Ox
98.1 F 88 16 105/72 99
08/07/24 07:25 08/07/24 07:25 08/07/24 07:25 08/07/24 07:25 08/07/24 07:25
Lab Results - Hematology
08/05/24 08/06/24 08/07/24
11:33 06:20 06:02
WBC 3.9 L 2.7 L 3.1 L
Lab Results - Chemistry
08/05/24 08/06/24 08/07/24
11:33 06:20 06:02
BUN 13 10 9
Creatinine 0.7 0.6 0.6
Estimated Creat Clear 104 119 119
Albumin 4.1
Microbiology Results
08/05/24 19:11 MRSA Screen - Final
Nose No Methicillin Resistant Staphylococcus aureus isolated.
08/06/24 16:04 Gram Stain - Preliminary
Bursa
08/05/24 11:33 Blood Culture - Preliminary
Blood/Venous No Growth in 24 hours- Final report to follow
08/05/24 11:33 Blood Culture - Preliminary
Blood/Venous No Growth in 24 hours- Final report to follow
[2024-08-07] MEDS: FLEXERIL 10 MG PO (11:28)
[2024-08-07] MEDS: CYMBALTA DELAYED RELEASE 60 MG PO (11:28)
[2024-08-07] MEDS: FEOSOL 325 MG PO (11:28)
[2024-08-07] MEDS: MOBIC 15 MG PO (11:28)
--- NOTE | 2024-08-07 12:30 | W.PN.ID1 ---
Date of Service
Date of Service: August 07, 2024
Today's Communication
Add cefepime to Vancomycin.
Assessment / Plan
# Right olecranon soft tissue abscess/bursitis
-MRI shows residual 2.4 cm abscess without joint involvement
- Appreciate Ortho - aspirated serous fluid from abscess 08/06, cx pending
- To OR today, per ORTHO. Please send deep cultures. Suspect gram positive organism.
- Continue Vancomycin. Follow level closely.
- Add cefepime.
- Will de-escalate when cx data available.
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
Chief Complaint
-: Other (elbow infection)
Subjective / Review of Systems
Right elbow continues to have pain. CARISSA-WRAP helps.
Vital Signs / Physical Exam
Vital Signs
Vital Signs
Temp Pulse Resp BP Pulse Ox
98.1 F 88 16 105/72 99
08/07/24 07:25 08/07/24 07:25 08/07/24 07:25 08/07/24 07:25 08/07/24 07:25
Physical Exam
Constitutional: No Acute Distress
Musculoskeletal: Other (left olecranon + induration, + tenderness, wound unchanged)
Neurological: AO x 3
Objective Data
Lab Data
Lab Results
08/07/24 06:02
08/07/24 06:02
Estimated Creat Clear 119 ml/min 08/07/24 06:02
Total Bilirubin 0.5 mg/dl (0.2-1.3) 08/05/24 11:33
AST 23 U/L (14-36) 08/05/24 11:33
ALT 12 U/L (0-35) 08/05/24 11:33
Alkaline Phosphatase 100 U/L (38-126) 08/05/24 11:33
Most recent labs reviewed.
Micro Results:
08/05/24 11:33 Blood Culture - Preliminary
Blood/Venous No Growth in 48 hours- Final report to follow
08/05/24 11:33 Blood Culture - Preliminary
Blood/Venous No Growth in 48 hours- Final report to follow
08/06/24 16:04 Body Fluid Culture - Pending
Bursa Gram Stain - Preliminary
08/05/24 19:11 MRSA Screen - Final
Nose No Methicillin Resistant Staphylococcus aureus isolated.
08/06/24 MRI RUE: There is extensive T2 hyperintense signal and enhancement along the medial posterior soft tissues of the elbow extending along the proximal aspect of the forearm. There is a 1.7 x 0.7 x 2.4 cm peripherally enhancing collection,
likely abscess in the superficial soft tissues posterior to the olecranon. There is no discrete evidence of underlying osteomyelitis or intra-articular extension.
--- NOTE | 2024-08-07 13:41 | W.PN.HOSP.TC ---
Today's Communication/Plan
-
Washout in the OR today, appreciate ortho
Continue antibiotics
Assessment / Plan
Assessment / Plan
Physical Exam
General: Well Developed, Well Nourished and No Apparent Distress
HEENT: Normocephalic, Moist mucous membranes and Atraumatic
Respiratory: Clear to Auscultation Bilaterally
Cardiac: S1/S2 and Regular Rhythm
GI: Soft, Non Tender, Non Distended and Normal Bowel Sounds
Musculoskeletal: No Cyanosis and No Edema
Skin: Right olecranon with induration, wound/ulceration with patel-brown slough, very tender, no drainage, some fluctuance, and surrounding erythema present -- COVERED IN DRESSING
Neuro: AAO x 3 and Nonfocal/grossly intact
Psych: Calm
Assessment/Plan
39-year-old female past medical history of stage IV breast cancer 2019 status post mastectomy with reconstruction on hormonal/immunotherapy follows at [facility] with metastases to left hip status post left hip replacement presenting with right elbow open
wound with purulent drainage surrounding cellulitis over the past week. No injuries.
Outpatient x-ray of the elbow shows soft tissue swelling, cannot rule out occult fracture.
She was treated for pneumonia with Z-Danyel 1 week ago. She has recovered from this.
# Presentation with right elbow swelling, redness, skin ulceration, pus (lump recently burst on 08/04/24 with pus and blood)
# Abscess/cellulitis on right elbow
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
-Patient was taking outpatient Bactrim, and once her right elbow lump burst with pus and blood coming out, patient's outpatient provider asked patient to go to the ER
-Vancomycin continued. Zosyn stopped as per Infectious Disease physician -- appreciate Infectious Disease assistance
-Cefepime added.
-Blood culture sent from ER
-MRI showed a 1.7 x 2.4 cm peripherally enhancing collection in the superficial soft tissue without joint involvement
-Wound care consultation
-Orthopedics consulted, appreciate their assistance: on 08/06/24, right elbow was meticulously cleaned then aspirated fluid yielding scant serous fluid; aerobic and anaerobic cultures were sent.
-Orthopedics plan to take patient to operating room today, for washout
# Stage IV breast metastatic cancer
-On targeted therapy
- follows oncologist at [facility]
-Dilaudid as needed for pain
-Will continue Lyrica
-Per patient and her , patient's Damari has been on hold for the past ~2 weeks given her recent pneumonia
-Consulted oncology, appreciate evaluation and recommendations
# Depression/anxiety
-Duloxetine continued
# Muscle spasm
-Flexeril continued
# Iron deficiency anemia
-Ferrous sulfate continued
# DVT prophylaxis
-Lovenox subcu
# CODE STATUS: Full code
Anticipated Discharge: > 48 hours
Subjective/Interval History
-
Date of Service: August 07, 2024
Patient was seen and examined. She reported that her right elbow symptoms have not improved. No other new significant symptoms.
Objective Data
-
Labs:
Laboratory Results
08/07/24
06:02
WBC 3.1 L
Hgb 11.5 L
Hct 34.0 L
Plt Count 224
Sodium 140
Potassium 4.5
Chloride 106
Carbon Dioxide 26
BUN 9
Creatinine 0.6
Glucose 84
Calcium 8.3 L
Vital Signs:
Vital Signs
Temp Pulse Resp BP Pulse Ox
98.1 F 88 16 105/72 99
08/07/24 07:25 08/07/24 07:25 08/07/24 07:25 08/07/24 07:25 08/07/24 07:25
I&O
08/06/24 08/07/24 08/08/24
06:59 06:59 06:59
Intake Total 830 / 830 1840 / 1840
Balance 830 / 830 1839
[2024-08-07] MEDS: STERILE WATER FOR INJECTION 10 ML IV (13:42)
[2024-08-07] MEDS: MAXIPIME 1000 MG IV (13:42)
--- NOTE | 2024-08-07 15:11 | CM ---
CM following rte: discharge planning.
Reviewed pt's chart, met with pt and pt's at bedside.
OR today for washout, continue supportive care.
D/C plan: home with outpatient follow up at [facility].
CM will follow with discharge plan updates as hospitalization progresses
[2024-08-07] MEDS: SUBLIMAZE 50 MCG IV (16:30)
[2024-08-07] MEDS: SUBLIMAZE 25 MCG IV (17:00)
[2024-08-07] MEDS: ARIMIDEX 1 MG PO (17:27)
[2024-08-07] MEDS: LOVENOX SC (17:30)
[2024-08-07] MEDS: COMPAZINE 5 MG IV (18:48)
--- NOTE | 2024-08-07 23:00 | PTCARENOTE ---
@215: Verbally instructed CHRISTIANO kSy on pt's level #9 right arm pain.Received order for Dilaudid 1mg IV stat dose and administered@2122. Pt appears comfortable sleeping @0.
--- NOTE | 2024-08-07 23:50 | PTCARENOTE ---
@2114:Verbally instructed CHRISTIANO Boyer on pt's level #9 right arm pain.Received order for Dilaudid 1mg IV stat dose and administered.@2122. Pt appears comfortable sleeping @2200'.
[2024-08-08] MEDS: MAXIPIME 1000 MG IV ×2 (00:01→06:29)
[2024-08-08] MEDS: STERILE WATER FOR INJECTION 10 ML IV ×2 (00:01→06:29)
[2024-08-08] MEDS: DILAUDID 4 MG PO ×4 (00:04→18:01)
[2024-08-08] MEDS: FLUSH (NSS) 2 FLUSH IV ×2 (00:05→20:14)
[2024-08-08] MEDS: LYRICA 75 MG PO ×3 (05:30→20:15)
[2024-08-08] MEDS: SENOKOT 17.2 MG PO ×3 (05:33→20:15)
--- NOTE | 2024-08-08 05:49 | W.PN.UPDATE ---
Update Note
Progress Note Update
Patient with complaint of severe pain on right side of face, right eyebrow area and right eye. Also c/o sore, right side of mouth and on tongue. Patient stated she noticed pain while in PACU, and then noted rash on face and in hair line. Rash is
clusters of vesicles on right side of face, in hair line, and right side of mouth. Patient started on IV acyclovir, refresh eye drops, magic mouth wash, dilaudid IV and one time dose of Ativan. Discussed possible dx and treatment with patient, who
is in agreement with plan. ID previously consulted. Patient placed on airborne precautions. Nursing claims adjuster supervisor notified.
--- NOTE | 2024-08-08 06:00 | PTCARENOTE ---
@0515; Pt woke up crying and stated,'I can't open my right eye.I feel like I have bumps inside my right eye lid, in the back of my throat/tongue and right side of my face.' Pt has clear blisters groupings in these areas.Pt stated,' I'm in so much
pain '.@0521;Instructed nighat Turcios v TT ,on above note.@0526;CHRISTIANO Sky into see pt.@0545;Pt placed on airborne precautions for shingles.Ativan and Dilaudid ordered and administered.
[2024-08-08] MEDS: ATIVAN 0.25 MG IV (06:28)
[2024-08-08] MEDS: NSS (PRESERVATIVE FREE) 0.125 ML IV (06:30)
[2024-08-08] MEDS: VANCOCIN 200 IV (06:32)
[2024-08-08] MEDS: DILAUDID 0.5 MG IV ×4 (06:32→20:13)
--- NOTE | 2024-08-08 07:31 | W.PN.ORTHO ---
Today's Communication / Plan
-
Patient will continue with dressing/splint to hopefully eliminate extremes of extension/flexion
Elevation with ice to control edema/pain
Cultures from the other day have grown Staph aureus thus far
Antibiotics per infectious disease
Orthopedics to follow while here
Follow-up 5 days postop for wound check, likely leave sutures in for 2 to 3 weeks
Assessment
.
Distal Motor Intact: Yes
Dressing:
Right arm dressing removed. Incision is clean, dry and intact. Alonso drain was removed. No significant fluid accumulation noted within the olecranon bursal region. Passive motion is nonpainful. No erythema appreciated. Passive motion
nonpainful. Distal neurovascular was intact. Adaptic placed over incision with bulky dressing and splint replaced. Jignesh wrap overwrapped.
Plan
.
Surgery / Date: Right elbow I & D 08/07 [place]
Activity:
Out of bed.
PT/OT
Discharge Plan: Home
Subjective
.
.:
Patient resting comfortably. Right elbow pain has been well. Unfortunately per nursing she awoke with painful rash above right eye and they are concerned that it might be a shingles outbreak.
Vital Signs and Labs
.
Vital Signs and Labs:
Temp Pulse Resp BP Pulse Ox
97.9 F 71 15 101/67 97
08/07/24 23:34 08/07/24 23:34 08/07/24 23:34 08/07/24 23:34 08/07/24 23:34
[2024-08-08 07:45] VITALS: BP 113/65
--- NOTE | 2024-08-08 08:05 | PTCARENOTE ---
@0515;Pt woke up crying and stated,'I can't open my right eye. I feel like I have bumps inside my right eyelid,in the back of my throat /tongue and right side of face'.Pt has small clear blisters groupings in theses area.Pt stated,'I'm in so much
pain'.@0521:Instructed CHRISTIANO Boyer via TT,on above note.@0526;CHRISTIANO Boyer into see pt.@0545;Pt placed on airborne precautions for shingles.Ativan and Dilaudid ordered and administered.
--- NOTE | 2024-08-08 08:53 | W.PN.ID1 ---
Date of Service
Date of Service: August 08, 2024
Today's Communication
See below.
Start IV acyclovir.
Narrow abx's to cefazolin.
Assessment / Plan
# Immunocompromised host with stage IV breast CA on immunotherapy
# New R V1, V3 herpes zoster
- Start acyclovir 10 mg/kg IV q8 due to immunecompromised status.
- Monitor for nephrotoxicity closely while on IV acyclovir.
- Blepharitis from zoster.
Appreciate Ophtho - will examine patient.
- Airborne and contact isolation.
# Right olecranon soft tissue abscess/bursitis
-MRI shows residual 2.4 cm abscess without joint involvement
- Appreciate Ortho - aspirated serous fluid from abscess 08/06, cx MSSA
- 08/07 s/p OR I+D, cx pending
-Narrow abx to cefazolin.
Chief Complaint
-: Other (elbow infection)
Subjective / Review of Systems
Events noted. Post-op she developed rash on right upper face. She reports some pain just prior to rash eruption.
+ itching. + eyelid pain. Doesn't think she has eyeball pain.
Vital Signs / Physical Exam
Vital Signs
Vital Signs
Temp Pulse Resp BP Pulse Ox
98.6 F 90 16 113/65 100
08/08/24 07:45 08/08/24 07:45 08/08/24 07:45 08/08/24 07:45 08/08/24 07:45
Physical Exam
Constitutional: No Acute Distress
Eyes: Pupils Equal, Pupils Round and Other (No conjunctivitis. Movement without pain. Visionn stable.); Negative No Conjunctival Hemorrhage or Ocular Discharge
Oropharyngeal: Ulcers (right mucosa)
Cardiovascular: Regular Rate and S1/S2
Pulmonary: Clear
Gastrointestinal: Soft and Non Tender
Extremities: Negative Edema
Musculoskeletal: Spinal Tenderness (mid-lumbar)
Skin: Rash (Maculopapular lesions with areas vesicular clusters on right forehead to hairline to confucianism to anterior to ear, lesion on upper eyelid with edema; right oral mucosa)
Wound: Other (right elbow: post-op dressing intact)
Neurological: AO x 3
Objective Data
Lab Data
Estimated Creat Clear 119 ml/min 08/07/24 06:02
Total Bilirubin 0.5 mg/dl (0.2-1.3) 08/05/24 11:33
AST 23 U/L (14-36) 08/05/24 11:33
ALT 12 U/L (0-35) 08/05/24 11:33
Alkaline Phosphatase 100 U/L (38-126) 08/05/24 11:33
Most recent labs reviewed.
Micro Results:
08/06/24 16:04 Body Fluid Culture - Final
Bursa S aureus-Methicillin Sensitive
Gram Stain - Final
08/07/24 15:47 Anaerobic Culture - Pending
Elbow - Right
08/07/24 15:47 Wound Culture - Pending
Elbow - Right Gram Stain - Pending
08/05/24 11:33 Blood Culture - Preliminary
Blood/Venous No Growth in 48 hours- Final report to follow
08/05/24 11:33 Blood Culture - Preliminary
Blood/Venous No Growth in 48 hours- Final report to follow
08/05/24 19:11 MRSA Screen - Final
Nose No Methicillin Resistant Staphylococcus aureus isolated.
08/06/24 MRI RUE: There is extensive T2 hyperintense signal and enhancement along the medial posterior soft tissues of the elbow extending along the proximal aspect of the forearm. There is a 1.7 x 0.7 x 2.4 cm peripherally enhancing collection,
likely abscess in the superficial soft tissues posterior to the olecranon. There is no discrete evidence of underlying osteomyelitis or intra-articular extension.
Care Review
Plan reviewed with: Physician (Dr. Darnell.)
[2024-08-08] MEDS: COLACE 100 MG PO ×2 (09:33→20:14)
[2024-08-08] MEDS: ZOVIRAX INJECTION 112 MG IV ×2 (09:33→18:12)
--- NOTE | 2024-08-08 10:15 | CM ---
Patient moving to isolation room - chart reviewed.
Dx: R elbow cellulitis - s/p I&D, cx pending
hx: Breast ca onimmunotherapy
new herpes zoster
Start IV acyclovir
PLAN: home when medically stable, CM to follow for needs
[2024-08-08] MEDS: REFRESH EYE DROPS (PF) OPHTH ×2 (11:15→16:00)
[2024-08-08] MEDS: REFRESH EYE DROPS (PF) 1 DROPS OPHTH ×5 (11:15→23:53)
[2024-08-08] MEDS: ERYTHROMYCIN 0.5% OPHTHALMIC OINTMENT 1 APPLIC TOPICAL ×2 (11:18→22:00)
[2024-08-08] MEDS: ERYTHROMYCIN 0.5% OPHTHALMIC OINTMENT 1 APPLIC OPHTH ×3 (11:18→23:43)
[2024-08-08] MEDS: FEOSOL 325 MG PO (11:23)
[2024-08-08] MEDS: CYMBALTA DELAYED RELEASE 60 MG PO (11:23)
[2024-08-08] MEDS: FLEXERIL 10 MG PO (11:23)
[2024-08-08] MEDS: MOBIC 15 MG PO (11:23)
[2024-08-08 11:25] LABS: Hematocrit 33.2 % (37.0-47.0); Hemoglobin 11.3 g/dL (12.0-16.0); Mean Corpuscular Hgb 33.5 pg (27.0-31.0); Mean Corpuscular Volume 98.5 fL (81.0-99.0); Mean Platelet Volume 9.2 fL (7.4-10.4); Platelet Count 238 10^3/uL (130-400); Red Blood Cell Count 3.37 10^6/uL (4.20-5.40); Red Cell Dist. Width 11.8 % (11.5-14.5); White Blood Cell Count 4.4 10^3/uL (4.8-10.8)
[2024-08-08 12:02] LABS: Blood Urea Nitrogen 10 mg/dl (7-17); Calcium 8.4 mg/dl (8.4-10.2); Carbon Dioxide 27 mmol/L (22-30); Chloride 101 mmol/L (98-107); Estimated Creatinine Clearance 119 ml/min; Glucose 75 mg/dl (70-99); Sodium 138 mmol/L (135-145); eGFR > 60.00
[2024-08-08] MEDS: BACTROBAN 2% OINTMENT TOPICAL (12:46)
--- NOTE | 2024-08-08 14:53 | W.PN.HOSP.TC ---
Today's Communication/Plan
-
IV Acyclovir for Zoster
Greatly appreciate ophthalmology and infectious disease assistance
Assessment / Plan
Assessment / Plan
Physical Exam
General: Well Developed, Well Nourished and No Apparent Distress
HEENT: Normocephalic, Moist mucous membranes and Atraumatic
Respiratory: Clear to Auscultation Bilaterally
Cardiac: S1/S2 and Regular Rhythm
GI: Soft, Non Tender, Non Distended and Normal Bowel Sounds
Musculoskeletal: No Cyanosis and No Edema
Skin: Right olecranon with induration, wound/ulceration with patel-brown slough, very tender, no drainage, some fluctuance, and surrounding erythema present -- COVERED IN DRESSING
Neuro: AAO x 3 and Nonfocal/grossly intact
Psych: Calm
Assessment/Plan
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
wound with purulent drainage surrounding cellulitis over the past week. No injuries.
Outpatient x-ray of the elbow shows soft tissue swelling, cannot rule out occult fracture.
She was treated for pneumonia with Z-Danyel 1 week ago. She has recovered from this.
# Presentation with right elbow swelling, redness, skin ulceration, pus (lump recently burst on 08/04/24 with pus and blood)
# Abscess/cellulitis on right elbow
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
# Right Elbow Septic olecranon bursitis
# New R V1, V3 herpes zoster
# Blepharitis from zoster
-Start acyclovir 10 mg/kg IV q8 due to immunocompromised status and monitor for nephrotoxicity closely while on IV acyclovir.
-Airborne and contact isolation.
-Patient was taking outpatient Bactrim, and once her right elbow lump burst with pus and blood coming out, patient's outpatient provider asked patient to go to the ER
-Vancomycin, Zosyn, Cefepime stopped.
-MRI showed a 1.7 x 2.4 cm peripherally enhancing collection in the superficial soft tissue without joint involvement
-Wound care consultation
-Orthopedics consulted, appreciate their assistance: on 08/06/24, right elbow was meticulously cleaned then aspirated fluid yielding scant serous fluid; aerobic and anaerobic cultures were sent --> cultures from this have grown
MSSA
-Given above findings, continue Ancef
-Orthopedics performed washout of the affected area on 08/07/24: irrigation and debridement of right elbow including skin, subcutaneous tissue, muscle, and tendon; Right elbow olecranon bursectomy.
-Elevation with ice to control edema/pain
-Follow-up 5 days postop for wound check, likely leave sutures in for 2 to 3 weeks
#Right-Sided Facial Rash and Right Eye Pain
-Acycylovir IV
-Consulted glove operator Dr. Jenn Matias, who saw the patient in the hospital on 08/08/24
-Artificial tears every 2 hours (while awake) and Erythro Ophthalmic ointment TID and Erythro Ophthalmic ointment for the external skin rash BID to prevent infection and scars --> patient should continue these on
discharge
-Ensure adequate pain control
-Per Dr. Matias, patient has Zoster, cornea not involved, maybe mild conjunctivitis. Can go home on po antivirals for 7 to 10 days total (including the IV days)-- but go with 10 days because she�s immune compromised -- appreciate Dr. Matias's
help
-Airborne precautions
# Stage IV breast metastatic cancer
-On targeted therapy
- follows oncologist at [facility]
-Dilaudid as needed for pain
-Will continue Lyrica
-Per patient and her , patient's Damari has been on hold for the past ~2 weeks given her recent pneumonia
-Consulted oncology, appreciate evaluation and recommendations
# Depression/anxiety
-Duloxetine continued
# Muscle spasm
-Flexeril continued
# Iron deficiency anemia
-Ferrous sulfate continued
# DVT prophylaxis
-Lovenox subcutaneous
# CODE STATUS: Full code
Total time spent today on chart review, seeing and examining the patient, speaking with the patient and her , speaking with the patient's nurse, speaking with infectious disease and ophthalmology, placing orders, and documentation, was 90
minutes.
Anticipated Discharge: > 48 hours
Subjective/Interval History
-
Date of Service: August 08, 2024
Patient was seen and examined. Overnight, patient developed a right-sided facial rash with severe associated pain.
Objective Data
-
Labs:
Laboratory Results
08/08/24
10:57
WBC 4.4 L
Hgb 11.3 L
Hct 33.2 L
Plt Count 238
Sodium 138
Potassium 4.0
Chloride 101
Carbon Dioxide 27
BUN 10
Creatinine 0.5 L
Glucose 75
Calcium 8.4
Vital Signs:
Vital Signs
Temp Pulse Resp BP Pulse Ox
98.6 F 90 16 113/65 100
08/08/24 07:45 08/08/24 07:45 08/08/24 07:45 08/08/24 07:45 08/08/24 07:45
I&O
08/07/24 08/08/24 08/09/24
06:59 06:59 06:59
Intake Total 1839 / 0 1260 / 1260
Balance 184 / 184 1260 / 1260
[2024-08-08] MEDS: ANCEF 10 IV ×2 (14:58→23:51)
[2024-08-08] MEDS: MAGIC OR MIRACLE MOUTHWASH 5 ML PO (15:25)
[2024-08-08 15:44] VITALS: BP 94/61
[2024-08-08] MEDS: ARIMIDEX 1 MG PO (18:01)
[2024-08-08] MEDS: LOVENOX SC (18:01)
--- NOTE | 2024-08-08 19:54 | PTCARENOTE ---
patient medicated with PRN Dilaudid for c/o right elbow, right eye and back pain with some relief. right eye lid very swollen, can barely open eyelid, vesicular clusters extending into right side of head, PRN Magic mouth wash with some relief for
mouth and throat pain, tolerating diet, independent in room, right elbow dressing c/d/i, elevated on 3 pillows, vss, will continue to monitor.
[2024-08-08 23:50] VITALS: BP 112/74
[2024-08-08] MEDS: FLUSH (NSS) 4 FLUSH IV (23:52)
[2024-08-09] MEDS: DILAUDID 4 MG PO ×4 (00:02→18:01)
[2024-08-09] MEDS: ZOVIRAX INJECTION 112 MG IV ×3 (00:03→16:22)
[2024-08-09] MEDS: REFRESH EYE DROPS (PF) 1 DROPS OPHTH ×9 (01:14→20:58)
[2024-08-09] MEDS: DILAUDID 0.5 MG IV ×3 (01:22→20:58)
[2024-08-09] MEDS: REFRESH EYE DROPS (PF) OPHTH ×3 (05:23→22:24)
[2024-08-09] MEDS: ANCEF 10 IV ×3 (06:47→22:04)
[2024-08-09] MEDS: LYRICA 75 MG PO ×3 (06:51→21:15)
[2024-08-09 07:20] VITALS: BP 117/79
--- NOTE | 2024-08-09 07:27 | W.PN.ORTHO ---
Today's Communication / Plan
-
Patient will continue with dressing/splint to hopefully eliminate extremes of extension/flexion
Elevation with ice to control edema/pain
Cultures from the other day have grown Staph aureus thus far
Antibiotics per infectious disease
Follow-up 5 days postop for wound check, likely leave sutures in for 2 to 3 weeks
Orthopedic surgery will follow peripherally; please reengage with further questions or concerns; will plan for close outpatient monitoring or reengage if symptoms recur about the elbow while admitted
Assessment
.
Distal Motor Intact: Yes
Dressing:
Clean, dry and intact.
Plan
.
Surgery / Date: Right elbow I & D 08/07 Ritting
Activity:
Out of bed.
PT/OT
Subjective
.
.:
Patient resting comfortably.
Vital Signs and Labs
.
Vital Signs and Labs:
Temp Pulse Resp BP Pulse Ox
98.4 F 90 20 112/74 98
08/08/24 23:50 08/08/24 23:50 08/08/24 23:50 08/08/24 23:50 08/08/24 23:50
[2024-08-09 08:52] LABS: Hematocrit 33.4 % (37.0-47.0); Hemoglobin 11.2 g/dL (12.0-16.0); Mean Corp Hgb Conc. 33.5 g/dL (33.0-37.0); Mean Corpuscular Hgb 33.1 pg (27.0-31.0); Mean Corpuscular Volume 98.8 fL (81.0-99.0); Mean Platelet Volume 9.4 fL (7.4-10.4); Platelet Count 239 10^3/uL (130-400); Red Blood Cell Count 3.38 10^6/uL (4.20-5.40); Red Cell Dist. Width 11.9 % (11.5-14.5); White Blood Cell Count 3.7 10^3/uL (4.8-10.8)
[2024-08-09] MEDS: TYLENOL 1000 MG PO ×2 (09:49→15:17)
[2024-08-09] MEDS: COLACE 100 MG PO ×2 (09:49→20:57)
[2024-08-09] MEDS: SENOKOT PO (09:49)
[2024-08-09 09:50] LABS: Blood Urea Nitrogen 6 mg/dl (7-17); Calcium 8.2 mg/dl (8.4-10.2); Carbon Dioxide 28 mmol/L (22-30); Chloride 102 mmol/L (98-107); Estimated Creatinine Clearance 119 ml/min; Glucose 104 mg/dl (70-99); Potassium 4.2 mmol/L (3.5-5.1); Sodium 141 mmol/L (135-145); eGFR > 60.00
[2024-08-09] MEDS: ERYTHROMYCIN 0.5% OPHTHALMIC OINTMENT 1 APPLIC OPHTH ×2 (09:52→15:21)
[2024-08-09] MEDS: ERYTHROMYCIN 0.5% OPHTHALMIC OINTMENT 1 APPLIC TOPICAL ×2 (09:53→20:57)
[2024-08-09] MEDS: DILAUDID 1 MG IV (10:08)
[2024-08-09] MEDS: MOBIC 15 MG PO (12:12)
[2024-08-09] MEDS: FEOSOL 325 MG PO (12:12)
[2024-08-09] MEDS: CYMBALTA DELAYED RELEASE 60 MG PO (12:12)
[2024-08-09] MEDS: FLEXERIL 10 MG PO (12:12)
[2024-08-09] MEDS: SENOKOT 17.2 MG PO ×2 (12:15→21:15)
--- NOTE | 2024-08-09 13:58 | W.PN.ID1 ---
Date of Service
Date of Service: August 09, 2024
Today's Communication
c/w iv acyclovir
c/w iv cefazolin
- would like to see no new vesicles and vesicles beginning to crust over prior to switching to oral acyclovir; patient understands she may remain in house through the weekend
Assessment / Plan
# Immunocompromised host with stage IV breast CA on immunotherapy
# New R V1, V3 herpes zoster
- Start acyclovir 10 mg/kg IV q8 due to immunocompromised status.
- Monitor for nephrotoxicity closely while on IV acyclovir.
- Blepharitis from zoster.
Appreciate Ophtho
- Airborne and contact isolation.
- would like to see no new vesicles and vesicles beginning to crust over prior to switching to oral acyclovir; patient understands she may remain in house through the weekend
# Right olecranon soft tissue abscess/bursitis
-MRI shows residual 2.4 cm abscess without joint involvement
- Appreciate Ortho - aspirated serous fluid from abscess 08/06, cx MSSA
- 08/07 s/p OR I+D, cx MSSA
- c/w cefazolin.
Chief Complaint
-: Other (septic bursitis, shingles)
Subjective / Review of Systems
afebrile
bp stable
also with mouth and throat pain in addition to the V1 dermatoma
still with clear vesicles across the forehead and in the posterior mouth
Vital Signs / Physical Exam
Vital Signs
Vital Signs
Temp Pulse Resp BP Pulse Ox
99.3 F 95 18 117/79 100
08/09/24 07:20 08/09/24 07:20 08/09/24 07:20 08/09/24 07:20 08/09/24 09:30
Physical Exam
Constitutional: No Acute Distress
Cardiovascular: Regular Rate and S1/S2; Negative Murmur or Rub
Pulmonary: Clear and Symmetric; Negative Wheezes or Rales
Gastrointestinal: Soft, Non Tender, Non Distended and Normal Bowel Sounds
Skin: Warm and Dry; Negative Rash or Jaundice
Wound: Other (rash V1 and V3, vesicular rash; right elbow dressing clean/dry/intact)
Objective Data
Lab Data
Lab Results
08/09/24 08:02
08/09/24 08:02
Estimated Creat Clear 119 ml/min 08/09/24 08:02
Total Bilirubin 0.5 mg/dl (0.2-1.3) 08/05/24 11:33
AST 23 U/L (14-36) 08/05/24 11:33
ALT 12 U/L (0-35) 08/05/24 11:33
Alkaline Phosphatase 100 U/L (38-126) 08/05/24 11:33
Most recent labs reviewed.
Micro Results:
08/05/24 11:33 Blood Culture - Preliminary
Blood/Venous No Growth in 4 days- Final report to follow
08/05/24 11:33 Blood Culture - Preliminary
Blood/Venous No Growth in 4 days- Final report to follow
08/07/24 15:47 Wound Culture - Preliminary
Elbow - Right S aureus-Methicillin Sensitive
Gram Stain - Preliminary
08/06/24 16:04 Body Fluid Culture - Final
Bursa S aureus-Methicillin Sensitive
Gram Stain - Final
08/07/24 15:47 Anaerobic Culture - Pending
Elbow - Right
08/05/24 19:11 MRSA Screen - Final
Nose No Methicillin Resistant Staphylococcus aureus isolated.
08/06/24 MRI RUE: There is extensive T2 hyperintense signal and enhancement along the medial posterior soft tissues of the elbow extending along the proximal aspect of the forearm. There is a 1.7 x 0.7 x 2.4 cm peripherally enhancing collection,
likely abscess in the superficial soft tissues posterior to the olecranon. There is no discrete evidence of underlying osteomyelitis or intra-articular extension.
[2024-08-09 15:07] VITALS: BP 117/73
--- NOTE | 2024-08-09 16:40 | W.PN.HOSP.TC ---
Today's Communication/Plan
-
Continue IV acyclovir and antibiotics
Appreciate ID and Ophthalmology assistance
Assessment / Plan
Assessment / Plan
Physical Exam
General: Well Developed, Well Nourished and No Apparent Distress
HEENT: Normocephalic, Moist mucous membranes and Atraumatic
Respiratory: Clear to Auscultation Bilaterally
Cardiac: S1/S2 and Regular Rhythm
GI: Soft, Non Tender, Non Distended and Normal Bowel Sounds
Musculoskeletal: No Cyanosis and No Edema
Skin: Vesicular, tender rash on the right side of the face. Right olecranon with induration, wound/ulceration with patel-brown slough, very tender, no drainage, some fluctuance, and surrounding erythema present -- COVERED IN
DRESSING
Neuro: AAO x 3 and Nonfocal/grossly intact
Psych: Calm
Assessment/Plan
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
wound with purulent drainage surrounding cellulitis over the past week. No injuries.
Outpatient x-ray of the elbow shows soft tissue swelling, cannot rule out occult fracture.
She was treated for pneumonia with Z-Danyel 1 week ago. She has recovered from this.
# Presentation with right elbow swelling, redness, skin ulceration, pus (lump recently burst on 08/04/24 with pus and blood)
# Abscess/cellulitis on right elbow
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
# Right Elbow Septic olecranon bursitis
# New R V1, V3 herpes zoster
# Blepharitis from zoster
-Continue IV acyclovir due to immunocompromised status and monitor for nephrotoxicity closely while on IV acyclovir.
-Before switching to oral acyclovir, would like to see no new vesicles and vesicles beginning to crust over
-Airborne and contact isolation.
-Patient was taking outpatient Bactrim, and once her right elbow lump burst with pus and blood coming out, patient's outpatient provider asked patient to go to the ER
-Vancomycin, Zosyn, Cefepime stopped - Ancef started as below
-MRI showed a 1.7 x 2.4 cm peripherally enhancing collection in the superficial soft tissue without joint involvement
-Wound care consultation
-Orthopedics consulted, appreciate their assistance: on 08/06/24, right elbow was meticulously cleaned then aspirated fluid yielding scant serous fluid; aerobic and anaerobic cultures were sent --> cultures from this have grown
MSSA
-Given above findings, continue Ancef
-Orthopedics performed washout of the affected area on 08/07/24: irrigation and debridement of right elbow including skin, subcutaneous tissue, muscle, and tendon; Right elbow olecranon bursectomy.
-Elevation with ice to control edema/pain
-Follow-up 5 days postop for wound check, likely leave sutures in for 2 to 3 weeks
#Right-Sided Facial Rash and Right Eye Pain
-Acycylovir IV
-Consulted nursery school teacher Dr. Jenn Matias, who saw the patient in the hospital on 08/08/24 and on 08/09/24 -- she performed dilated eye exam, her retina looked okay, patient doing better when she saw her on
, so okay to continue to monitor patient here
-Artificial tears every 2 hours (while awake) and Erythro Ophthalmic ointment TID and Erythro Ophthalmic ointment for the external skin rash BID to prevent infection and scars --> patient should continue these on
discharge
-Ensure adequate pain control
-Per Dr. Matias, patient has Zoster, cornea not involved, maybe mild conjunctivitis. Can go home on po antivirals for 7 to 10 days total (including the IV days)-- but go with 10 days because she�s immune compromised -- appreciate Dr. Matias's
help
-Airborne precautions
# Stage IV breast metastatic cancer
-On targeted therapy
- follows oncologist at [facility]
-Dilaudid as needed for pain
-Will continue Lyrica
-Per patient and her , patient's Damari has been on hold for the past ~2 weeks given her recent pneumonia
-Consulted oncology, appreciate evaluation and recommendations
# Depression/anxiety
-Duloxetine continued
# Muscle spasm
-Flexeril continued
# Iron deficiency anemia
-Ferrous sulfate continued
# DVT prophylaxis
-Lovenox subcutaneous
# CODE STATUS: Full code
Anticipated Discharge: > 48 hours
Subjective/Interval History
-
Date of Service: August 09, 2024
Patient was seen and examined. She reported the pain and rash on the right side of her face were worse today.
Objective Data
-
Labs:
Laboratory Results
08/09/24
08:02
WBC 3.7 L
Hgb 11.2 L
Hct 33.4 L
Plt Count 239
Sodium 141
Potassium 4.2
Chloride 102
Carbon Dioxide 28
BUN 6 L
Creatinine 0.5 L
Glucose 104 H
Calcium 8.2 L
Vital Signs:
Vital Signs
Temp Pulse Resp BP Pulse Ox
98.2 F 82 16 117/73 99
08/09/24 15:07 08/09/24 15:07 08/09/24 15:07 08/09/24 15:07 08/09/24 15:07
I&O
08/08/24 08/09/24 08/10/24
06:59 06:59 06:59
Intake Total 1260 / 1260 824 / 824 754 / 754
Balance 1260 / 1260 824 / 824 754 / 754
[2024-08-09] MEDS: LOVENOX 40 MG SC (18:03)
[2024-08-09] MEDS: ARIMIDEX 1 MG PO (18:03)
[2024-08-09] MEDS: ERYTHROMYCIN 0.5% OPHTHALMIC OINTMENT OPHTH (22:23)
[2024-08-09 23:31] VITALS: BP 118/72
[2024-08-10] MEDS: TYLENOL 1000 MG PO ×4 (00:09→23:59)
[2024-08-10] MEDS: DILAUDID 4 MG PO ×5 (00:09→23:59)
[2024-08-10] MEDS: REFRESH EYE DROPS (PF) 1 DROPS OPHTH ×9 (00:13→21:03)
[2024-08-10] MEDS: ZOVIRAX INJECTION 112 MG IV ×3 (00:47→17:16)
[2024-08-10] MEDS: REFRESH EYE DROPS (PF) OPHTH ×3 (01:41→22:00)
[2024-08-10] MEDS: DILAUDID 0.5 MG IV ×4 (02:33→21:09)
[2024-08-10] MEDS: ANCEF 10 IV ×3 (05:15→21:13)
[2024-08-10] MEDS: LYRICA 75 MG PO ×3 (05:27→21:09)
[2024-08-10] MEDS: SENOKOT 17.2 MG PO ×3 (05:27→21:09)
[2024-08-10 07:00] VITALS: BP 120/78
[2024-08-10 07:42] LABS: % Eosinophils 1.3 % (0-6); % Immature Granulocytes 0.3 % (0-0.5); % Lymphocytes 16.6 % (20.5-51.1); % Monocytes 8.7 % (1.7-9.3); % Neutrophils 72.1 % (42.2-75.2); Absolute Eosinophils 0.1 10^3/uL (0-0.7); Absolute Lymphocytes 0.7 10^3/uL (1.2-3.4); Absolute Monocytes 0.3 10^3/uL (0.1-0.6); Absolute Neutrophils 2.8 10^3/uL (1.4-6.5); Hematocrit 35.7 % (37.0-47.0); Mean Corp Hgb Conc. 33.6 g/dL (33.0-37.0); Mean Corpuscular Hgb 33.1 pg (27.0-31.0); Mean Corpuscular Volume 98.3 fL (81.0-99.0); Mean Platelet Volume 9.4 fL (7.4-10.4); Nucleated Red Blood Cells % 0 %; Platelet Count 231 10^3/uL (130-400); Red Blood Cell Count 3.63 10^6/uL (4.20-5.40); Red Cell Dist. Width 11.9 % (11.5-14.5); White Blood Cell Count 3.9 10^3/uL (4.8-10.8)
[2024-08-10 08:06] LABS: Blood Urea Nitrogen 7 mg/dl (7-17); Calcium 8.4 mg/dl (8.4-10.2); Carbon Dioxide 28 mmol/L (22-30); Chloride 104 mmol/L (98-107); Estimated Creatinine Clearance 119 ml/min; Glucose 91 mg/dl (70-99); Potassium 3.7 mmol/L (3.5-5.1); Sodium 143 mmol/L (135-145); eGFR > 60.00
[2024-08-10] MEDS: COLACE 100 MG PO ×2 (09:13→21:02)
[2024-08-10] MEDS: ERYTHROMYCIN 0.5% OPHTHALMIC OINTMENT 1 APPLIC TOPICAL ×2 (09:13→21:02)
[2024-08-10] MEDS: MAGIC OR MIRACLE MOUTHWASH 5 ML PO (09:14)
[2024-08-10] MEDS: ERYTHROMYCIN 0.5% OPHTHALMIC OINTMENT 1 APPLIC OPHTH ×3 (09:14→21:00)
[2024-08-10] MEDS: FEOSOL 325 MG PO (11:21)
[2024-08-10] MEDS: CYMBALTA DELAYED RELEASE 60 MG PO (11:21)
[2024-08-10] MEDS: MIRALAX 17 GRAMS PO (11:22)
[2024-08-10] MEDS: MOBIC 15 MG PO (11:23)
[2024-08-10] MEDS: FLEXERIL 10 MG PO (11:23)
--- NOTE | 2024-08-10 12:12 | W.PN.ID1 ---
Date of Service
Date of Service: August 10, 2024
Today's Communication
Continue abx.
Assessment / Plan
# Immunocompromised patient with stage IV breast CA on immunotherapy
# Right V1 herpes zoster
- Continue acyclovir 10 mg/kg IV q8 due to immunocompromised status.
- Monitor for nephrotoxicity closely while on IV acyclovir.
- Airborne and contact isolation.
- would like to see no new vesicles and vesicles beginning to crust over prior to switching to oral acyclovir; patient understands she may remain in house through the weekend
# Right olecranon soft tissue abscess/bursitis
-MRI shows residual 2.4 cm abscess without joint involvement
- Appreciate Ortho - aspirated serous fluid from abscess 08/06, cx MSSA
- 08/07 s/p OR I+D, cx MSSA
- c/w cefazolin.
Chief Complaint
-: Other (right olecranon septic bursitis; V1 shingles)
Subjective / Review of Systems
Review of Systems: No Fever
Vital Signs / Physical Exam
Vital Signs
Vital Signs
Temp Pulse Resp BP Pulse Ox
98.5 F 75 16 120/78 100
08/10/24 07:00 08/10/24 07:00 08/10/24 07:00 08/10/24 07:00 08/10/24 07:00
Physical Exam
Constitutional: No Acute Distress, Comfortable and Non-toxic
Cardiovascular: Regular Rate and S1/S2; Negative Murmur or Rub
Pulmonary: Clear and Symmetric; Negative Wheezes or Rales
Gastrointestinal: Soft, Non Tender, Non Distended and Normal Bowel Sounds
Skin: Warm, Dry, Rash and Jaundice
Wound: Other (vesicular rash V1 distribution. No crusts at present. right elbow dressing clean/dry/intact)
Neurological: Awake and Alert
Psychological: Calm
Objective Data
Lab Data
Lab Results
08/10/24 07:16
08/10/24 07:16
Estimated Creat Clear 119 ml/min 08/10/24 07:16
Total Bilirubin 0.5 mg/dl (0.2-1.3) 08/05/24 11:33
AST 23 U/L (14-36) 08/05/24 11:33
ALT 12 U/L (0-35) 08/05/24 11:33
Alkaline Phosphatase 100 U/L (38-126) 08/05/24 11:33
Most recent labs reviewed.
Micro Results:
08/05/24 11:33 Blood Culture - Final
Blood/Venous No Growth - Final Report
08/05/24 11:33 Blood Culture - Final
Blood/Venous No Growth - Final Report
08/07/24 15:47 Wound Culture - Preliminary
Elbow - Right S aureus-Methicillin Sensitive
Gram Stain - Preliminary
08/07/24 15:47 Anaerobic Culture - Preliminary
Elbow - Right Culture pending. Anaerobic cultures are examined after 3
days incubation. Additional information to follow.
08/06/24 16:04 Body Fluid Culture - Final
Bursa S aureus-Methicillin Sensitive
Gram Stain - Final
08/05/24 19:11 MRSA Screen - Final
Nose No Methicillin Resistant Staphylococcus aureus isolated.
08/06/24 MRI RUE: There is extensive T2 hyperintense signal and enhancement along the medial posterior soft tissues of the elbow extending along the proximal aspect of the forearm. There is a 1.7 x 0.7 x 2.4 cm peripherally enhancing collection,
likely abscess in the superficial soft tissues posterior to the olecranon. There is no discrete evidence of underlying osteomyelitis or intra-articular extension.
[2024-08-10 15:00] VITALS: BP 99/65
[2024-08-10] MEDS: LOVENOX 40 MG SC (17:17)
[2024-08-10] MEDS: ARIMIDEX 1 MG PO (17:17)
--- NOTE | 2024-08-10 19:16 | W.PN.HOSP.TC ---
Today's Communication/Plan
-
Acyclovir, Ancef
IV Dilaudid is helping patient's pain
Assessment / Plan
Assessment / Plan
Physical Exam
General: Well Developed, Well Nourished and No Apparent Distress
HEENT: Normocephalic, Moist mucous membranes and Atraumatic
Respiratory: Clear to Auscultation Bilaterally
Cardiac: S1/S2 and Regular Rhythm
GI: Soft, Non Tender, Non Distended and Normal Bowel Sounds
Musculoskeletal: No Cyanosis and No Edema
Skin: Vesicular, tender rash on the right side of the face. Right olecranon with induration, wound/ulceration with patel-brown slough, very tender, no drainage, some fluctuance, and surrounding erythema present -- COVERED IN
DRESSING
Neuro: AAO x 3 and Nonfocal/grossly intact
Psych: Calm
Assessment/Plan
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
wound with purulent drainage surrounding cellulitis over the past week. No injuries.
Outpatient x-ray of the elbow shows soft tissue swelling, cannot rule out occult fracture.
She was treated for pneumonia with Z-Danyel 1 week ago. She has recovered from this.
# Presentation with right elbow swelling, redness, skin ulceration, pus (lump recently burst on 08/04/24 with pus and blood)
# Abscess/cellulitis on right elbow
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
# Right Elbow Septic olecranon bursitis
# New R V1, V3 herpes zoster
# Blepharitis from zoster
-Continue IV acyclovir due to immunocompromised status and monitor for nephrotoxicity closely while on IV acyclovir.
-Before switching to oral acyclovir, would like to see no new vesicles and vesicles beginning to crust over
-Airborne and contact isolation.
-Patient was taking outpatient Bactrim, and once her right elbow lump burst with pus and blood coming out, patient's outpatient provider asked patient to go to the ER
-Vancomycin, Zosyn, Cefepime stopped - Ancef started as below
-MRI showed a 1.7 x 2.4 cm peripherally enhancing collection in the superficial soft tissue without joint involvement
-Wound care consultation
-Orthopedics consulted, appreciate their assistance: on 08/06/24, right elbow was meticulously cleaned then aspirated fluid yielding scant serous fluid; aerobic and anaerobic cultures were sent --> cultures from this have grown
MSSA
-Cultures from OR washout also showing MSSA
-Given above findings, continue Ancef
-Orthopedics performed washout of the affected area on 08/07/24: irrigation and debridement of right elbow including skin, subcutaneous tissue, muscle, and tendon; Right elbow olecranon bursectomy.
-Elevation with ice to control edema/pain
-Follow-up 5 days postop for wound check, likely leave sutures in for 2 to 3 weeks
#Right-Sided Facial Rash and Right Eye Pain
-Acycylovir IV
-Consulted jelly maker Dr. Jenn Matias, who saw the patient in the hospital on 08/08/24 and on 08/09/24 -- she performed dilated eye exam on 08/09/24, her retina looked okay, patient doing better when she saw
her on , so okay to continue to monitor patient here
-Artificial tears every 2 hours (while awake) and Erythro Ophthalmic ointment TID and Erythro Ophthalmic ointment for the external skin rash BID to prevent infection and scars --> patient should continue these on
discharge
-Ensure adequate pain control
-Per Dr. Matias, patient has Zoster, cornea not involved, maybe mild conjunctivitis. Can go home on po antivirals for 7 to 10 days total (including the IV days)-- but go with 10 days because she�s immune compromised -- appreciate Dr. Matias's
help
-Airborne precautions
# Stage IV breast metastatic cancer
-On targeted therapy
- follows oncologist at [facility]
-Dilaudid IV ordered scheduled but at a staggered fashion with patient's home PO Dilaudid
-Continue Lyrica
-Per patient and her , patient's Damari has been on hold for the past ~2 weeks given her recent pneumonia
-Consulted oncology, appreciate evaluation and recommendations
# Depression/anxiety
-Duloxetine continued
# Muscle spasm
-Flexeril continued
# Iron deficiency anemia
-Ferrous sulfate continued
# DVT prophylaxis
-Lovenox subcutaneous
# CODE STATUS: Full code
Anticipated Discharge: > 48 hours
Subjective/Interval History
-
Date of Service: August 10, 2024
Patient was seen and examined. She reported that she is feeling better today, pain is better with the intravenous Dilaudid.
Objective Data
-
Labs:
Laboratory Results
08/10/24
07:16
WBC 3.9 L
Hgb 12.0
Hct 35.7 L
Plt Count 231
Sodium 143
Potassium 3.7
Chloride 104
Carbon Dioxide 28
BUN 7
Creatinine 0.4 L
Glucose 91
Calcium 8.4
Vital Signs:
Vital Signs
Temp Pulse Resp BP Pulse Ox
97.7 F 90 16 99/65 98
08/10/24 15:00 08/10/24 15:00 08/10/24 15:00 08/10/24 15:00 08/10/24 15:00
I&O
08/09/24 08/10/24 08/11/24
06:59 06:59 06:59
Intake Total 824 / 824 6074 / 3634
Balance 824 / 824 3964 / 3634
[2024-08-11] MEDS: REFRESH EYE DROPS (PF) 1 DROPS OPHTH ×6 (00:01→20:55)
[2024-08-11] MEDS: ZOVIRAX INJECTION 112 MG IV ×3 (00:04→16:47)
[2024-08-11] MEDS: REFRESH EYE DROPS (PF) OPHTH ×6 (03:13→22:09)
[2024-08-11] MEDS: DILAUDID 0.5 MG IV ×4 (03:19→20:57)
[2024-08-11] MEDS: SENOKOT 17.2 MG PO ×3 (06:18→20:56)
[2024-08-11] MEDS: ANCEF 10 IV ×3 (06:18→20:57)
[2024-08-11] MEDS: LYRICA 75 MG PO ×3 (06:18→20:55)
[2024-08-11] MEDS: DILAUDID 4 MG PO ×3 (06:18→17:50)
[2024-08-11 06:42] LABS: % Basophils 0.6 % (0-2); % Eosinophils 2.4 % (0-6); % Immature Granulocytes 0.4 % (0-0.5); % Monocytes 8.9 % (1.7-9.3); % Neutrophils 64.7 % (42.2-75.2); Absolute Eosinophils 0.1 10^3/uL (0-0.7); Absolute Lymphocytes 1.2 10^3/uL (1.2-3.4); Absolute Monocytes 0.5 10^3/uL (0.1-0.6); Absolute Neutrophils 3.3 10^3/uL (1.4-6.5); Hematocrit 34.6 % (37.0-47.0); Hemoglobin 11.6 g/dL (12.0-16.0); Mean Corp Hgb Conc. 33.5 g/dL (33.0-37.0); Mean Corpuscular Hgb 33.2 pg (27.0-31.0); Mean Corpuscular Volume 99.1 fL (81.0-99.0); Mean Platelet Volume 9.4 fL (7.4-10.4); Nucleated Red Blood Cells % 0 %; Platelet Count 213 10^3/uL (130-400); Red Blood Cell Count 3.49 10^6/uL (4.20-5.40); Red Cell Dist. Width 11.9 % (11.5-14.5); White Blood Cell Count 5.1 10^3/uL (4.8-10.8)
[2024-08-11 07:16] LABS: Blood Urea Nitrogen 10 mg/dl (7-17); Calcium 8.4 mg/dl (8.4-10.2); Carbon Dioxide 29 mmol/L (22-30); Chloride 103 mmol/L (98-107); Estimated Creatinine Clearance 119 ml/min; Glucose 80 mg/dl (70-99); Potassium 3.8 mmol/L (3.5-5.1); Sodium 144 mmol/L (135-145); eGFR > 60.00
[2024-08-11 07:25] VITALS: BP 121/73
[2024-08-11] MEDS: TYLENOL 1000 MG PO ×2 (09:23→15:11)
[2024-08-11] MEDS: MIRALAX 17 GRAMS PO (09:23)
[2024-08-11] MEDS: COLACE 100 MG PO ×2 (09:24→20:54)
[2024-08-11] MEDS: ERYTHROMYCIN 0.5% OPHTHALMIC OINTMENT 1 APPLIC OPHTH ×2 (09:24→15:12)
[2024-08-11] MEDS: ERYTHROMYCIN 0.5% OPHTHALMIC OINTMENT TOPICAL (09:24)
[2024-08-11 10:55] VITALS: BP 119/71
[2024-08-11] MEDS: FEOSOL 325 MG PO (11:40)
[2024-08-11] MEDS: CYMBALTA DELAYED RELEASE 60 MG PO (11:40)
[2024-08-11] MEDS: MOBIC 15 MG PO (11:40)
[2024-08-11] MEDS: FLEXERIL 10 MG PO (11:40)
--- NOTE | 2024-08-11 13:01 | W.PN.HOSP.TC ---
Today's Communication/Plan
-
Patient's symptoms are improving
Appreciate Ophthalmology and Infectious Disease
Continue antibiotics and antiviral while monitoring renal function
Assessment / Plan
Assessment / Plan
Physical Exam
General: Well Developed, Well Nourished and No Apparent Distress
HEENT: Normocephalic, Moist mucous membranes and Atraumatic
Respiratory: Clear to Auscultation Bilaterally
Cardiac: S1/S2 and Regular Rhythm
GI: Soft, Non Tender, Non Distended and Normal Bowel Sounds
Musculoskeletal: No Cyanosis and No Edema
Skin: Vesicular, tender rash on the right side of the face. Right olecranon with induration, wound/ulceration with patel-brown slough, very tender, no drainage, some fluctuance, and surrounding erythema present -- COVERED IN
DRESSING
Neuro: AAO x 3 and Nonfocal/grossly intact
Psych: Calm
Assessment/Plan
39-year-old female past medical history of stage IV breast cancer 2019 status post mastectomy with reconstruction on hormonal/immunotherapy follows at [facility] with metastases to left hip status post left hip replacement presenting with right elbow open
wound with purulent drainage surrounding cellulitis over the past week. No injuries.
Outpatient x-ray of the elbow shows soft tissue swelling, cannot rule out occult fracture.
She was treated for pneumonia with Z-Danyel 1 week ago. She has recovered from this.
# Presentation with right elbow swelling, redness, skin ulceration, pus (lump recently burst on 08/04/24 with pus and blood)
# Abscess/cellulitis on right elbow
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
# Right Elbow Septic olecranon bursitis
# New R V1, V3 herpes zoster
# Blepharitis from zoster
-Continue IV acyclovir due to immunocompromised status and monitor for nephrotoxicity closely while on IV acyclovir.
-Before switching to oral acyclovir, would like to see no new vesicles and vesicles beginning to crust over
-Airborne and contact isolation.
-Patient was taking outpatient Bactrim, and once her right elbow lump burst with pus and blood coming out, patient's outpatient provider asked patient to go to the ER
-Vancomycin, Zosyn, Cefepime stopped - Ancef started as below
-MRI showed a 1.7 x 2.4 cm peripherally enhancing collection in the superficial soft tissue without joint involvement
-Wound care consultation
-Orthopedics consulted, appreciate their assistance: on 08/06/24, right elbow was meticulously cleaned then aspirated fluid yielding scant serous fluid; aerobic and anaerobic cultures were sent --> cultures from this have grown
MSSA
-Cultures from OR washout also showing MSSA
-Given above findings, continue Ancef, or as per Infectious Disease
-Orthopedics performed washout of the affected area on 08/07/24: irrigation and debridement of right elbow including skin, subcutaneous tissue, muscle, and tendon; Right elbow olecranon bursectomy.
-Elevation with ice to control edema/pain
-Follow-up 5 days postop for wound check, likely leave sutures in for 2 to 3 weeks
#Right-Sided Facial Rash and Right Eye Pain
-Acycylovir IV
-Consulted waffle machine operator Dr. Jenn Matias, who saw the patient in the hospital on 08/08/24 and on 08/09/24 -- she performed dilated eye exam on 08/09/24, her retina looked okay, patient doing better when she saw
her on , so okay to continue to monitor patient here
-Artificial tears every 2 hours (while awake) and Erythro Ophthalmic ointment TID and Erythro Ophthalmic ointment for the external skin rash BID to prevent infection and scars --> patient should continue these on
discharge
-Ensure adequate pain control
-Per Dr. Matias, patient has Zoster, cornea not involved, maybe mild conjunctivitis. Can go home on po antivirals for 7 to 10 days total (including the IV days)-- but go with 10 days because she�s immune compromised -- appreciate Dr. Matias's
help
-Dr. Matias has been seeing patient everyday -- appreciate her assistance
-Airborne precautions
# Stage IV breast metastatic cancer
-On targeted therapy
- follows oncologist at [facility]
-Dilaudid IV ordered scheduled but at a staggered fashion with patient's home PO Dilaudid -- this is working well for the patient's pain with the Shingles, above
-Continue Lyrica
-Per patient and her , patient's Damari has been on hold for the past ~2 weeks given her recent pneumonia
-Consulted oncology, appreciate evaluation and recommendations
# Depression/anxiety
-Duloxetine continued
# Muscle spasm
-Flexeril continued
# Iron deficiency anemia
-Ferrous sulfate continued
# DVT prophylaxis
-Lovenox subcutaneous
# CODE STATUS: Full code
Anticipated Discharge: 24 - 48 hours
Subjective/Interval History
-
Date of Service: August 11, 2024
Patient was seen and examined. She reported feeling better, and reported continued improvement.
Objective Data
-
Labs:
Laboratory Results
08/11/24
06:20
WBC 5.1
Hgb 11.6 L
Hct 34.6 L
Plt Count 213
Sodium 144
Potassium 3.8
Chloride 103
Carbon Dioxide 29
BUN 10
Creatinine 0.5 L
Glucose 80
Calcium 8.4
Vital Signs:
Vital Signs
Temp Pulse Resp BP Pulse Ox
98.7 F 82 18 121/73 99
08/11/24 07:25 08/11/24 07:25 08/11/24 07:25 08/11/24 07:25 08/11/24 07:25
I&O
08/10/24 08/11/24 08/12/24
06:59 06:59 06:59
Intake Total 3634 / 3634 1740 / 1740
Balance 3634 / 3634 1740 / 1740
--- NOTE | 2024-08-11 13:59 | W.PN.ID1 ---
Date of Service
Date of Service: August 11, 2024
Today's Communication
Continue current antibiotics
Assessment / Plan
# Immunocompromised patient with stage IV breast CA on immunotherapy
# Right V1 herpes zoster
- Continue acyclovir 10 mg/kg IV q8 due to immunocompromised status.
- Monitor for nephrotoxicity closely while on IV acyclovir. Current creatinine stable.
- Continue with Airborne and contact isolation.
# Right olecranon soft tissue abscess/bursitis
-MRI shows residual 2.4 cm abscess without joint involvement
- Appreciate Ortho - aspirated serous fluid from abscess 08/06, cx MSSA
- 08/07 s/p OR I+D, cx MSSA
- c/w cefazolin.
Chief Complaint
-: Other (right olecranon septic bursitis; V1 shingles)
Subjective / Review of Systems
Patient seen and examined. Reports ongoing nausea and vomiting.
Review of Systems: No Fever and No Chills
Vital Signs / Physical Exam
Vital Signs
Vital Signs
Temp Pulse Resp BP Pulse Ox
98.7 F 82 18 121/73 99
08/11/24 07:25 08/11/24 07:25 08/11/24 07:25 08/11/24 07:25 08/11/24 07:25
Physical Exam
Constitutional: No Acute Distress, Comfortable and Non-toxic
Cardiovascular: Regular Rate and S1/S2; Negative Murmur or Rub
Pulmonary: Clear and Symmetric; Negative Wheezes or Rales
Gastrointestinal: Soft and Non Distended
Skin: Warm and Dry; Negative Rash or Jaundice
Wound: Other (vesicular rash V1 distribution. No crusts at present. right elbow dressing clean/dry/intact)
Neurological: Awake and Alert
Psychological: Calm
Objective Data
Lab Data
Lab Results
08/11/24 06:20
08/11/24 06:20
Estimated Creat Clear 119 ml/min 08/11/24 06:20
Total Bilirubin 0.5 mg/dl (0.2-1.3) 08/05/24 11:33
AST 23 U/L (14-36) 08/05/24 11:33
ALT 12 U/L (0-35) 08/05/24 11:33
Alkaline Phosphatase 100 U/L (38-126) 08/05/24 11:33
Most recent labs reviewed.
Micro Results:
08/07/24 15:47 Anaerobic Culture - Preliminary
Elbow - Right Culture pending. Anaerobic cultures are examined after 3
days incubation. Additional information to follow.
08/05/24 11:33 Blood Culture - Final
Blood/Venous No Growth - Final Report
08/05/24 11:33 Blood Culture - Final
Blood/Venous No Growth - Final Report
08/07/24 15:47 Wound Culture - Preliminary
Elbow - Right S aureus-Methicillin Sensitive
Gram Stain - Preliminary
08/06/24 16:04 Body Fluid Culture - Final
Bursa S aureus-Methicillin Sensitive
Gram Stain - Final
08/05/24 19:11 MRSA Screen - Final
Nose No Methicillin Resistant Staphylococcus aureus isolated.
08/06/24 MRI RUE: There is extensive T2 hyperintense signal and enhancement along the medial posterior soft tissues of the elbow extending along the proximal aspect of the forearm. There is a 1.7 x 0.7 x 2.4 cm peripherally enhancing collection,
likely abscess in the superficial soft tissues posterior to the olecranon. There is no discrete evidence of underlying osteomyelitis or intra-articular extension.
[2024-08-11 15:55] VITALS: BP 128/73
--- NOTE | 2024-08-11 16:00 | PTCARENOTE ---
PT very nauseated this shift after taking tylenol pt refusing tylenol. MD aware. PT does not want zofran or any medicaiton for nausea. she wants tylenol to be dc. I did alert the MD. Pt currently sleeping in room.
[2024-08-11] MEDS: LOVENOX 40 MG SC (16:47)
[2024-08-11] MEDS: ARIMIDEX 1 MG PO (16:48)
[2024-08-11] MEDS: ERYTHROMYCIN 0.5% OPHTHALMIC OINTMENT 1 APPLIC TOPICAL (20:56)
[2024-08-11] MEDS: ATIVAN 0.25 MG PO (21:48)
[2024-08-11] MEDS: ERYTHROMYCIN 0.5% OPHTHALMIC OINTMENT OPHTH (22:09)
[2024-08-12] MEDS: ZOVIRAX INJECTION 112 MG IV ×2 (00:22→09:56)
[2024-08-12] MEDS: DILAUDID 4 MG PO ×3 (00:22→11:40)
[2024-08-12] MEDS: REFRESH EYE DROPS (PF) OPHTH ×6 (00:29→11:37)
[2024-08-12 00:45] VITALS: BP 119/71
[2024-08-12] MEDS: DILAUDID 0.5 MG IV ×2 (04:02→09:24)
[2024-08-12] MEDS: ANCEF 10 IV (05:58)
[2024-08-12] MEDS: LYRICA 75 MG PO ×2 (06:02→11:43)
[2024-08-12] MEDS: SENOKOT 17.2 MG PO ×2 (06:04→11:42)
[2024-08-12 07:20] VITALS: BP 126/74
[2024-08-12 07:43] LABS: Hemoglobin 11.3 g/dL (12.0-16.0); Mean Corp Hgb Conc. 33.2 g/dL (33.0-37.0); Mean Corpuscular Hgb 32.4 pg (27.0-31.0); Mean Corpuscular Volume 97.4 fL (81.0-99.0); Mean Platelet Volume 9.5 fL (7.4-10.4); Platelet Count 219 10^3/uL (130-400); Red Blood Cell Count 3.49 10^6/uL (4.20-5.40); White Blood Cell Count 3.3 10^3/uL (4.8-10.8)
[2024-08-12 08:25] LABS: Blood Urea Nitrogen 13 mg/dl (7-17); Calcium 8.2 mg/dl (8.4-10.2); Carbon Dioxide 26 mmol/L (22-30); Chloride 104 mmol/L (98-107); Estimated Creatinine Clearance 119 ml/min; Glucose 70 mg/dl (70-99); Potassium 3.5 mmol/L (3.5-5.1); Sodium 140 mmol/L (135-145); eGFR > 60.00
[2024-08-12 08:42] LABS: % Basophils 0.6 % (0-2); % Eosinophils 3.3 % (0-6); % Immature Granulocytes 0.3 % (0-0.5); % Lymphocytes 41.6 % (20.5-51.1); % Monocytes 9.9 % (1.7-9.3); % Neutrophils 44.3 % (42.2-75.2); Absolute Eosinophils 0.1 10^3/uL (0-0.7); Absolute Lymphocytes 1.4 10^3/uL (1.2-3.4); Absolute Monocytes 0.3 10^3/uL (0.1-0.6); Absolute Neutrophils 1.5 10^3/uL (1.4-6.5); Nucleated Red Blood Cells % 0 %
[2024-08-12] MEDS: COLACE 100 MG PO (09:14)
[2024-08-12] MEDS: MIRALAX PO (09:18)
--- NOTE | 2024-08-12 09:18 | WOUNDNOTE ---
JAMILAH RN NOTE: Patient is s/p I&D of R elbow, now with intact sutures and ortho following for wound care. Mupirocin has been discontinued, dressing now- Adaptic placed over incision with bulky dressing and splint replaced, Jignesh wrap overwrapped, per
ortho note. Updated care plan and discharge instructions, to follow up with orthopedic surgeon post discharge. Will sign off.
[2024-08-12] MEDS: REFRESH EYE DROPS (PF) 1 DROPS OPHTH (09:22)
[2024-08-12] MEDS: ERYTHROMYCIN 0.5% OPHTHALMIC OINTMENT 1 APPLIC OPHTH (09:23)
[2024-08-12] MEDS: REGLAN 10 MG IV (09:27)
--- NOTE | 2024-08-12 09:55 | PTCARENOTE ---
Patient tearful, because she wants to go home. Patient states, 'I can't stay here one more day.' Physician made aware. Patient c/o nausea, Reglan given with good relief. Patient concerned about dressing change of right elbow, per ortho patient is
to follow up with ortho tomorrow 08/03 in their office. Patient and spouse verbalized understanding.
[2024-08-12] MEDS: ERYTHROMYCIN 0.5% OPHTHALMIC OINTMENT TOPICAL (09:56)
--- NOTE | 2024-08-12 10:16 | W.PN.ID1 ---
Date of Service
Date of Service: August 12, 2024
Today's Communication
Can transition IV acyclovir to valacyclovir 1000mg po q8h through 08/21/24.
Can transition cefazolin to cephalexin 1000mg po q8h through 08/21/24.
Assessment / Plan
# Immunocompromised patient with stage IV breast CA on immunotherapy
# Severe Right V1 herpes zoster
- On acyclovir 10 mg/kg IV q8 (d5)
- Can transition to valacyclovir 1000mg po q8h through 08/21/24.
- OK to dc home. 2 children are vaccinated against varicella. had chickenpox as a child.
Avoid direct contact to lesions. Stay at home, avoid public and guests until all lesions are crusted over.
aware. He will keep her isolated upstairs as a precaution.
# Right olecranon soft tissue abscess/bursitis
-MRI shows residual 2.4 cm abscess without joint involvement
- Appreciate Ortho - aspirated serous fluid from abscess 08/06, cx MSSA
- 08/07 s/p OR I+D, cx MSSA
- Can transition cefazolin to cephalexin 1000mg po q8h through 08/21/24.
Chief Complaint
-: Other (right olecranon septic bursitis; V1 shingles)
Subjective / Review of Systems
Odynophagia resolved. No visual changes.
Asking to go home.
Vital Signs / Physical Exam
Vital Signs
Vital Signs
Temp Pulse Resp BP Pulse Ox
98.2 F 78 16 126/74 98
08/12/24 07:20 08/12/24 07:20 08/12/24 07:20 08/12/24 07:20 08/12/24 07:20
Physical Exam
Constitutional: No Acute Distress and Comfortable
Cardiovascular: Regular Rate and S1/S2
Pulmonary: Clear
Skin: Other (right upper face to eyelid, anglican area with significant lesions, 90% crusted, 3 to 4 vesicles remain. )
Neurological: AO x 3
Objective Data
Lab Data
Lab Results
08/12/24 06:54
08/12/24 06:54
Estimated Creat Clear 119 ml/min 08/12/24 06:54
Total Bilirubin 0.5 mg/dl (0.2-1.3) 08/05/24 11:33
AST 23 U/L (14-36) 08/05/24 11:33
ALT 12 U/L (0-35) 08/05/24 11:33
Alkaline Phosphatase 100 U/L (38-126) 08/05/24 11:33
Most recent labs reviewed.
Micro Results:
08/07/24 15:47 Anaerobic Culture - Preliminary
Elbow - Right Culture pending. Anaerobic cultures are examined after 3
days incubation. Additional information to follow.
08/05/24 11:33 Blood Culture - Final
Blood/Venous No Growth - Final Report
08/05/24 11:33 Blood Culture - Final
Blood/Venous No Growth - Final Report
08/07/24 15:47 Wound Culture - Preliminary
Elbow - Right S aureus-Methicillin Sensitive
Gram Stain - Preliminary
08/06/24 16:04 Body Fluid Culture - Final
Bursa S aureus-Methicillin Sensitive
Gram Stain - Final
08/05/24 19:11 MRSA Screen - Final
Nose No Methicillin Resistant Staphylococcus aureus isolated.
08/06/24 MRI RUE: There is extensive T2 hyperintense signal and enhancement along the medial posterior soft tissues of the elbow extending along the proximal aspect of the forearm. There is a 1.7 x 0.7 x 2.4 cm peripherally enhancing collection,
likely abscess in the superficial soft tissues posterior to the olecranon. There is no discrete evidence of underlying osteomyelitis or intra-articular extension.
Care Review
Plan reviewed with: Physician (Dr. Connie Jaimes)
[2024-08-12] MEDS: FEOSOL 325 MG PO (11:37)
[2024-08-12] MEDS: FLEXERIL 10 MG PO (11:37)
[2024-08-12] MEDS: MOBIC 15 MG PO (11:37)
[2024-08-12] MEDS: CYMBALTA DELAYED RELEASE 60 MG PO (11:40)
[2024-08-12 11:50] VITALS: BP 124/67
--- NOTE | 2024-08-12 15:13 | W.PN.HOSP.TC ---
Today's Communication/Plan
-
d/c home
Assessment / Plan
Assessment / Plan
1. Right elbow bursitis from MSSA
Immunocompromise state
-MRI showed a 1.7 x 2.4 cm peripherally enhancing collection in the superficial soft tissue without joint involvement
-Orthopedic surgery did irrigation/debridement of right elbow olecranon bursa and did bursectomy on 08/07
-Intraoperative fluid culture growing MSSA
-Patient was managed on IV Ancef during the hospital stay, ID recommended Keflex 1 g every 8 hour till 08/21/24
-Orthopedic surgery recommended for patient to follow-up in office postdischarge
2. Right facial V1 area Herpes zoster
-Significant blepharitis from vesicle involving eyelids, no signs suggestive of zoster ophthalmicus
-ophthalmology evaluated patient and have some conjunctivitis, no retinal involvement
-Patient was on IV acyclovir during the hospital stay
-ID recommended valacyclovir 1 g every 8 till 08/21/2024
-Erythromycin ointment to apply to eye and surrounding eyelid/skin provided
-Patient to follow strict isolation and avoid social gathering until all blisters are scabbed.
3. Stage IV breast metastatic cancer
-Instructed patient to remain off of Kisquali until finishes her course of abx/antiviral therapy.
-follows oncologist at [facility]
-Continue Lyrica/home dose of oral pain medication
-Consulted oncology, appreciate evaluation and recommendations
4. Depression/anxiety
-Duloxetine continued
5. Muscle spasm
-Flexeril continued
6. Iron deficiency anemia
-Ferrous sulfate continued
DVT prophylaxis-Lovenox subcutaneous
CODE STATUS: Full code
More than 30 minutes spent in discharge including
Final examination of the patient
Summarizing hospital stay
Instructions for continuing care to all relevant caregivers
Preparation of discharge records, prescriptions, and referral forms
Total time spent (in minutes): 38 mins
Anticipated Discharge: Today
Subjective/Interval History
-
Date of Service: August 12, 2024
Afebrile overnight
Continues to have blistering on right upper face
No significant pain reported white elbow bursitis site
Objective Data
-
Labs:
Laboratory Results
08/12/24
06:54
WBC 3.3 L
Hgb 11.3 L
Hct 34.0 L
Plt Count 219
Sodium 140
Potassium 3.5
Chloride 104
Carbon Dioxide 26
BUN 13
Creatinine 0.4 L
Glucose 70
Calcium 8.2 L
Vital Signs:
Vital Signs
Temp Pulse Resp BP Pulse Ox
98.0 F 78 16 124/67 98
08/12/24 11:50 08/12/24 11:50 08/12/24 11:50 08/12/24 11:50 08/12/24 11:50
I&O
08/11/24 08/12/24 08/13/24
06:59 06:59 06:59
Intake Total 1839
Balance 1839
Review of Systems
-
Respiratory: Reports No Symptoms
Cardiac: Reports No Symptoms
Abdomen/GI: Reports No Symptoms
Physical Exam
-
General: No Apparent Distress and Comfortable
HEENT: Negative Oxygen
Respiratory: Clear to Auscultation
Cardiac: Regular Rhythm and S1/S2; Negative Murmur or Rub
GI: Soft, Nontender and Nondistended
Musculoskeletal: No Edema and Other (Right elbow dressing in place)
Neuro: Awake, Alert, Oriented, No Motor Deficits and Nonfocal/Grossly Intact
Psych: Calm
--- NOTE | 2024-08-13 17:15 | W.DCSUMMARY ---
Discharge Summary
Discharge Data
Date of Admission: 08/05/24
Date of Discharge: 08/12/24
-
Pending Results: No
Hospital Course
Discharging Physician : Dr Jf Jaimes
Disposition : Home
Primary care physician : Unknown
Principal Discharge diagnosis :
Right septic olecranon bursitis from methicillin-sensitive Staphylococcus aureus
Right facial given area herpes zoster
Immunocompromise state
Chronic Discharge diagnosis :
Metastatic breast cancer on Kisqali
Depression/anxiety
Iron deficiency anemia
Hospital Course :
Patient is a 39 year old female with mentioned past medical history came to ER for having worsening right elbow swelling. Patient was started on Bactrim by one of the physician at home. Patient continued to worsening swelling with spontaneous
drainage started from right elbow site. An x-ray done in ER showing soft tissue swelling. Patient was started on empiric antibiotic. A follow-up MRI of the area showing superficial collection likely olecranon bursitis without involvement of elbow
joint itself. ID and orthopedic surgery were involved in care and patient underwent washout and debridement of olecranon bursa and bursectomy. Intraoperative culture later grew MSSA and patient antibiotic was adjusted to IV Ancef. After
improvement in symptoms at discharge patient was transition to oral Keflex 1 g every 8 hour with last dose on 08/21/24. Patient was recommended to follow-up with orthopedic surgery in office.
Patient also developed right facial blister was diagnosed to have herpes zoster breakout. Patient have history of breast cancer and on Kisqali for treatment. Patient is immunosuppressed and was started on IV acyclovir therapy. Patient did
significant blepharitis/conjunctivitis as well and was evaluated by ophthalmology in hospital. No retinal involvement and ophthalmology recommended for patient to continue erythromycin ointment for prevention of any bacterial infection. At time of
discharge patient still have active lesion which has not scabbed out and ID have recommended patient to monitor social distancing and proper safety measures at home. Patient will be discharged on oral valacyclovir 1 g every 8 hours course lasting
at 08/21/2024
Important imaging findings :
None
Procedure findings :
None
Discharge Plan
-
Patient Disposition: Home (Routine Discharge)
Discharge Diagnosis/Procedures: Right olecranon bursitis, Facial V1 herpes zoster
Condition: Fair
Diet: Regular
Activity: As tolerated
Driving Restrictions: Not until right elbow bursitis improved
Bathing Restrictions: OK to Shower
Activity Restrictions/Additional Instructions:
Wound Care Instructions
R elbow: Adaptic placed over incision with bulky dressing and splint replaced. Jignesh wrap overwrapped.
Elevate arm with pillows, air cushion on pillows
Ice pack PRN for pain.
Follow up with orthopedic surgery group as scheduled

Avoid any contact to facial blisters until scabbed
Avoid social gathering
Referrals:
NONE,* [Family Provider] -
Gee Randle MD [Active] - 08/13/24
()
Prescriptions:
New
erythromycin 5 mg/gram (0.5 %) Ointment
1 applic ophthalmic (eye) TID Qty: 3.5 1RF
erythromycin 5 mg/gram (0.5 %) Ointment
1 applic topical BID Qty: 3.5 0RF
Rx Instructions:
APPLY TO EYELID/FACE
carboxymethylcellulose sodium [Refresh Tears] 0.5 % drops
1 drp ophthalmic (eye) QID Qty: 15 0RF
valacyclovir 1 gram tablet
1,000 mg PO Q8H 10 Days Qty: 30 0RF
cephalexin 500 mg capsule
1,000 mg PO Q8H Qty: 30 0RF
Continued
anastrozole 1 mg Tablet
1 mg PO QPM
sennosides [senna] 8.6 mg Tablet
17.2 mg PO TID@0600,1200,1999
meloxicam 15 mg Tablet
15 mg PO NOON
cyanocobalamin (vitamin B-12) 1,000 mcg Tablet
1,000 mcg PO QPM
calcium carbonate 500 mg calcium (1,250 mg) Tablet
500 mg PO QPM
ferrous sulfate 325 mg (65 mg iron) Tablet
325 mg PO NOON
cholecalciferol (vitamin D3) [Vitamin D3] 25 mcg (1,000 unit) Capsule
25 mcg PO QPM
pregabalin [Lyrica] 75 mg Capsule
75 mg PO TID@0600,1199,1999
cyclobenzaprine 10 mg Tablet
10 mg PO NOON
hydromorphone 4 mg Tablet
4 mg PO Q6H
Rx Instructions:
TAKES AT 0000,0600,1200,1800
duloxetine 60 mg capsule,delayed release(DR/EC)
60 mg PO DAILY@0600
Held
Kisqali 200 mg/day (200 mg x 1) Tablet
0 mg PO PER PKG DIR
Hold Instructions: Resume on 08/22/24. HOLD UNTIL FINISH ANTIBIOTICS/ANTIVIRAL COURSE
Rx Instructions:
patient to take for 3 weeks on and then 1 week off
Discontinued
sulfamethoxazole-trimethoprim [Bactrim DS] 800-160 mg Tablet
1 tab PO BID
Discharge Orders:
Discharge Patient (As Directed); Ordered 08/12/24
Ordered By: Jf Jaimes
Discharge Date and Time
Discharge Date/Time: 08/12/24 13:04
Print Language: SYRIAC
== END 2024-08-12 13:04 | disposition home or self-care (01) | DRG 501 ==
LOC: 3 WEST ACU 14:20
PROVIDERS: Hospitalist; Orthopaedic Surgery Hand Surgery; Registered Nurse; ADMITTING PHYSICIAN Hospitalist; ATTENDING PHYSICIAN Hospitalist; CONSULT PHYSICIAN Internal Medicine Infectious Disease; CONSULT PHYSICIAN Ophthalmology; CONSULT PHYSICIAN Specialist; EMERGENCY PHYSICIAN Student in an Organized Health Care Education/Training Program; OTHER PHYSICIAN Internal Medicine Hematology & Oncology
PROC: 0MB30ZZ Excision of Right Elbow Bursa and Ligament, Open Approach (ICD-10-PCS; 2024-08-07)
PROC: 0LB30ZZ Excision of Right Upper Arm Tendon, Open Approach (ICD-10-PCS; 2024-08-07)
DX: M71.121 Other infective bursitis, right elbow (principal); B02.31 Zoster conjunctivitis; C79.51 Secondary malignant neoplasm of bone; D84.9 Immunodeficiency, unspecified; L03.113 Cellulitis of right upper limb; B95.61 Methicillin susceptible Staphylococcus aureus infection as the cause of diseases classified elsewhere; C50.919 Malignant neoplasm of unspecified site of unspecified female breast; Z79.811 Long term (current) use of aromatase inhibitors; Z90.710 Acquired absence of both cervix and uterus; Z96.642 Presence of left artificial hip joint; Z90.13 Acquired absence of bilateral breasts and nipples; Z87.891 Personal history of nicotine dependence; Z79.899 Other long term (current) drug therapy; K59.00 Constipation, unspecified; M62.838 Other muscle spasm; F32.A Depression, unspecified; F41.9 Anxiety disorder, unspecified; I89.0 Lymphedema, not elsewhere classified; D50.9 Iron deficiency anemia, unspecified
CPT/HCPCS: 73223; 80048; 80053; 85025; 85027; 87015; 87040; 87070; 87075; 87147; 87186; 87205; 96365; 96375; 99285; A9575